=== PATIENT | female | born 1945 | race Caucasian/White ===

== ENCOUNTER 2016-12-23 12:08 | Emergency (ER) | payer MEDICARE, OTHER ==
[2016-12-23 12:11] VITALS: BP 113/66; PULSE 59; TEMP 98.1; O2SAT 100; BMI 22.6
--- NOTE | 2016-12-23 13:28 | ED PDOC ---
Lower Extremity Pain/Injury Time Seen by Provider: 12/23/16 12:26 Chief Complaint (Nursing): Lower Extremity Problem/Injury Chief Complaint (Provider): Bilateral hip pain History Per: Patient History/Exam Limitations: no limitations Onset/Duration Of Symptoms: Persistent (4 months) Current Symptoms Are (Timing): Still Present Additional History Per: Patient Additional Complaint(s): The patient is a 71yo female with past medical history of hypertension and diabetes, presents to the ED for evaluation of bilateral hip pain, present for the past 4 months. Patient states she has visited her PCP 3x times for her pain and has received cortisone injections with mild relief. She reports she is also taking Robaxin and Diclofenac for her symptoms with no relief. She states her pain is worse with movement and she denies any falls or indirect injuries to her hips. Patient offers no additional medical complaints. Past Medical History Reviewed: Historical Data, Nursing Documentation, Vital Signs Vital Signs: Last Vital Signs Temp 98.1 F 12/23/16 12:10 Pulse 59 L 12/23/16 12:10 Resp BP 113/66 12/23/16 12:10 Pulse Ox 100 12/23/16 12:10 - Medical History PMH: Anxiety, Asthma, Diabetes, HTN Denies: Chronic Kidney Disease - Surgical History Surgical History: Cholecystectomy, Tonsillectomy - Family History Family History: States: No Known Family Hx - Living Arrangements Living Arrangements: With Family - Home Medications Home Medications: Ambulatory Orders Medication Instructions Recorded Albuterol Sulfate [Proair Hfa] 0.09 mg IH DAILY PRN 12/18/15 Albuterol/Ipratropium [Duoneb 3 3 ml IH DAILY PRN 12/18/15 MG/3 Ml-0.5 MG/3 Ml 3 Ml] Alprazolam [Xanax] 0.5 mg PO TID PRN 12/18/15 Fluticasone/Salmeterol 500/50 1 puff IH Q12 12/18/15 [Advair Diskus] Losartan/Hydrochlorothiazide 1 tab PO DAILY 12/18/15 [Losartan-Hctz 100-25 mg Tab] Meloxicam [Mobic] 7.5 mg PO DAILY 12/18/15 Memantine HCl [Namenda Xr] 28 mg PO DAILY 12/18/15 Mometasone [Asmanex Twisthaler 110 1 puff PO DAILY 12/18/15 MCG] Montelukast [Singulair] 10 mg PO DAILY 12/18/15 [place]-3 Fatty Acids [[place]-3] 1 cap PO DAILY 12/18/15 Omeprazole [Omeprazole] 20 mg PO DAILY 12/18/15 QUEtiapine [SEROquel XR] 50 mg PO DAILY 12/18/15 Quetiapine Fumarate [Seroquel] 25 mg PO DAILY 12/18/15 Temazepam [Restoril] 30 mg PO HS 12/18/15 - Allergies Allergies/Adverse Reactions: Allergies Allergy/AdvReac Type Severity Reaction Status Date / Time moxifloxacin [From Avelox] Allergy RASH Verified 12/23/16 12:14 Penicillins Allergy RASH Verified 12/23/16 12:14 Review of Systems Musculoskeletal: Positive for: Other (bilateral hip pain) Neurological: Negative for: Weakness, Numbness Physical Exam - Reviewed Nursing Documentation Reviewed: Yes Vital Signs Reviewed: Yes - Physical Exam Appears: Positive for: Non-toxic, No Acute Distress Head Exam: Positive for: ATRAUMATIC, NORMAL INSPECTION, NORMOCEPHALIC Eye Exam: Positive for: Normal appearance Neck: Positive for: Supple Cardiovascular/Chest: Positive for: Regular Rate, Rhythm Respiratory: Negative for: Respiratory Distress Gastrointestinal/Abdominal: Positive for: Normal Exam, Soft. Negative for: Tenderness Extremity: Positive for: Tenderness (tenderness to bilateral hips, right greater than left.). Negative for: Normal ROM (+ decreased ROM bilateral hips due to pain.), Deformity, Swelling Neurologic/Psych: Positive for: Alert, Oriented. Negative for: Motor/Sensory Deficits - ECG O2 Sat by Pulse Oximetry: 100 (RA) Pulse Ox Interpretation: Normal Medical Decision Making Medical Decision Making: Time: 1235 Impression: Bilateral hip pain Plan: -- XR bilateral hip Reassess XRay: at femoral head vague luceny noted. pt strongly advised to have orthopedic f/u and MRI of hip. Given clay artist contact . Scribe Attestation: Documented by Chantel Martines acting as a scribe for STEFANO Suero Provider Attestation: All medical record entries made by the Scribe were at my direction and personally dictated by me. I have reviewed the chart and agree that the record accurately reflects my personal performance of the history, physical exam, medical decision making, and the department course for this patient. I have also personally directed, reviewed, and agree with the discharge instructions and disposition. Disposition - Clinical Impression Clinical Impression: Hip pain - Patient ED Disposition Is Patient to be Admitted: No Counseled Patient/Family Regarding: Studies Performed, Diagnosis, Need For Followup - Disposition Referrals: [facility] [Outside] [facility] [place] [Outside] [facility] [place] [Outside] Disposition: Routine/Home Disposition Time: 13:46 Condition: STABLE Instructions: Arthralgia (ED), Hip Pain (ED) Print Language: CUBAN
--- NOTE | 2016-12-23 16:55 | RAD ---
PROCEDURE: Pelvis bilateral hips HISTORY: Severe pain worsening in the last 3 days COMPARISON: None TECHNIQUE: Standard protocol for this study/examination. FINDINGS: There are no osseous abnormalities to suggest fracture. The pelvic ring is intact. Preserved femoral-acetabular relationship. Negative study for protrusio, subluxation or dislocation. Degenerative changes: None IMPRESSION: No significant or acute findings to account for/ related to the clinical presentation.
== END 2016-12-23 14:15 | disposition home or self-care (01) ==
LOC: H.ER 12:08
DX: M25.559 Pain in unspecified hip (principal); E11.9 Type 2 diabetes mellitus without complications; F41.9 Anxiety disorder, unspecified; I10 Essential (primary) hypertension; J45.909 Unspecified asthma, uncomplicated

== ENCOUNTER 2017-03-04 09:17 | Inpatient (IN) | payer OTHER ==
[2017-03-04] MEDS ORDERED: ceFAZolin IV 1 gm in Dextrose 0 GM/0 ML BAG IVPB ONE (11:32)
[2017-03-04] MEDS ORDERED: Bupivacaine 0.5% Inj(30mL) ONE (11:32)
[2017-03-04] MEDS ORDERED: EPINEPHrine 1 mg/ml (1:1000) Inj ONE (11:32)
--- NOTE | 2017-03-04 12:02 | CARD ---
APPROVED REPORT EKG Measurement Heart [id number] <Conclusion> Normal sinus rhythm Normal ECG
[2017-03-04] MEDS ORDERED: Midazolam 2 MG/2 ML VIAL ONE (12:17)
[2017-03-04] MEDS ORDERED: Lidocaine 4% (Laryng-O-Jet) Kit MM ONE (12:17)
[2017-03-04] MEDS ORDERED: Morphine 1 mg/ml preservative-free Inj(Duramorph) ONE (12:20)
[2017-03-04] MEDS ORDERED: Etomidate 20 mg/10ml Inj IV ONE (12:20)
[2017-03-04] MEDS ORDERED: Rocuronium 10 mg/ml (5 ml) ONE (12:42)
[2017-03-04] MEDS ORDERED: Lactated Ringer's 1,000 ML IV ONE ×3 (12:49→14:30)
[2017-03-04] MEDS ORDERED: Sodium Chloride 0.9% 1,000 ML IV ONE ×3 (12:49→15:37)
[2017-03-04] MEDS ORDERED: ePHEDrine 50 mg/ml Inj ONE (13:41)
[2017-03-04] MEDS ORDERED: Neostigmine Methylsulfate 3mg/3ml Syringe IV ONE (14:57)
[2017-03-04] MEDS ORDERED: Bacitracin Ointment 30 GM TUBE ONE (15:14)
[2017-03-04] MEDS ORDERED: Sodium Chloride 0.9% Inj (10mL) IV ONE (15:25)
[2017-03-04] MEDS ORDERED: HYDROmorphone 0.5 mg/0.5 ml ISec IVP PRN (15:39)
[2017-03-04] MEDS ORDERED: Dexamethasone 4 mg/1 ml IVP PRN (15:39)
[2017-03-04] MEDS ORDERED: Naproxen 500 MG TAB PO PRN (15:49)
[2017-03-04] MEDS ORDERED: Albuterol HFA 90 mcg/actuation (8 g) IH PRN (15:49)
[2017-03-04] MEDS ORDERED: Albuterol-Ipratrop 3 mg / 0.5 (3 ml) UD IH PRN (15:49)
--- NOTE | 2017-03-04 15:49 | PCM.SURG1 ---
Surgeon's Initial Post Op Note - Surgeon's Notes Surgeon: Lata Patten MD Pipe Bowls Paint Trimmer: TOBY Panchal Type of Anesthesia: General Endo, Spinal Pre-Operative Diagnosis: Right hip severe OA Operative Findings: see p report Post-Operative Diagnosis: same as pre-op dx Operation Performed: R THR Specimen/Specimens Removed: right hip femoral head and soft tissue Estimated Blood Loss: EBL {In ML}: 250 Date of Surgery/Procedure: 03/04/17 Time of Surgery/Procedure: 14:00
[2017-03-04 17:20] LABS: HEMATOCRIT 35.6 % (34.0-47.0); MEAN CELL VOLUME 92.2 fl (81.0-99.0); MEAN CORPUSCULAR HGB CONC 32.6 g/dL (33.0-37.0); RED CELL DISTRIBUTION WIDTH 14.1 % (11.5-14.5); WHITE BLOOD COUNT 9.7 K/uL (4.8-10.8)
--- NOTE | 2017-03-04 18:06 | RAD ---
Indication: Status post right THR Comparison: Bilateral hip radiographs performed 12/23/16 Two views, right hip Findings: The patient is status post right hip arthroplasty. Alignment appears satisfactory. Soft tissue swelling, subcutaneous emphysema, and surgical libertad compatible with recent postoperative history Impression: Status post right hip arthroplasty as above.
[2017-03-04] MEDS ORDERED: DiphenhydrAMINE 50 mg/ml Inj IVP STA (19:44)
[2017-03-04] MEDS ORDERED: Clindamycin 600mg/50ml NS 600 MG/50 ML BAG IVPB ONE (20:00)
[2017-03-04] MEDS: oxyCODONE 10 mg ER Tab (oxyCONTIN) PO SCH (21:28)
--- NOTE | 2017-03-04 21:30 | OP ---
PROCEDURE DATE: 03/04/2017 ATTENDING PHYSICIAN: Lata Patten MD. COSTUME SHOP COORDINATOR: IVÁN Panchal. PREOPERATIVE DIAGNOSIS: Right hip arthritis. POSTOPERATIVE DIAGNOSIS: Right hip arthritis. PROCEDURE: Right total hip replacement. IMPLANTS SIZE: [place] 50 mm cup, MDM liner, 38 mm head with MDM liner, size 4 standard offset stem. ANESTHESIA TYPE: Spinal and general. ESTIMATED BLOOD LOSS: 200 mL. COMPLICATIONS: None. HISTORY: Patient with long standing history of right hip pain refractory of conservative management. X-ray had shown significant loss of joint space. After the failure of extensive conservative management, I had offered the patient the treatment option of total hip replacement. I reviewed the risk and benefits of the surgery with the patient in detail. The risks include, but not limited to bleeding, infection, nerve vessel damage, continuous pain, blood loss, instability, dislocation, iatrogenic fracture, blood clots, need for further surgery, and even . The patient fully understood the risks and benefits and opted to proceed. Patient underwent necessary preoperative medical workup and once medically cleared, was scheduled for the procedure. DESCRIPTION OF PROCEDURE: On the day of the surgery, the patient was admitted to preoperative holding area. A laterality sheet was completed, confirming correct operative site. An informed consent was signed from the patient and the correct operative hip was marked. Patient was brought into the operating room table. She underwent spinal and general anesthesia. Afterwards, the patient was placed on the operating room table in lateral decubitus position. All the bony prominences were well padded and an axillary roll was also placed. The hip was draped and prepped in the standard sterile manner. Timeout was completed, confirming correct operative site. We proceeded with Navigation assisted total hip replacement. Two pins were placed in the iliac crest to attach the antenna. Additional checkpoint was placed on the greater trochanter and on top of the acetabular roof. We utilized a standard postero-lateral approach. Using a #10 blade, a skin incision was made. The soft tissue dissection was taken down until the IT band fascia was identified incised along it's fibers. The short external rotators were exposed and excised with the capsule. It was tagged wit heavy sutures preserved for a later repair. Afterwards, the hip was dislocated and proposed neck cut was made. The Acetabulum was exposed using standard retractors. The remnant of torn labrum was excised along with pulvinar. The acetabulum was reamed using motorized reamers to the size that provide adequate depth and coverage. Next, size 50 cup was securely fixed in to the acetabular socket in appropriate version and inclination. A polyethylene liner was secured in to the acetabular cup. The femoral canal was exposed using standard retractors. Using the box chisel, lateral femoral neck was removed. Femoral canal was broached up to size 4 stem, which provide a secure fit and adequate fill of femoral canal. A standard offset trial neck was secured onto the broach. Different trial heads with variable neck lengths were secured onto the trial neck. The hip was reduced and taken through extensive range of motion to test stability, soft tissue tensioning and leg length. It was noted the 38 mm MDM liner with minus neck length provide adequate stability, soft tissue tensioning and length. Next, size 4 stem with standard offset was securely fixed into the femoral canal. Then, a 38 mm MDM head with 0 neck length was secured onto the neck of femoral stem. Hip was reduced and taken through final range of motion to assess for stability, soft tissue tensioning and leg length which was found to be satisfactory. Finally, the wound was copiously irrigated using pulse lavage solution. All loose bodies were removed. The short external rotators were repaired to greater trochanter using drill holes and heavy sutures. IT band fascia was tightly closed using heavy sutures and rest the wound was closed standard manner. Sterile dressing was applied. Patient was transferred to stretcher. Post-op instructions included posterior hip precautions. During this procedure, I was assisted by Courtney Quiles, who assisted in positioning the patient on the operating room table as well as transferring the patient from the operating room table to the recovery room stretcher. In addition, Courtney Quiles assisted me during the actual operative procedure by positioning, protecting critical neurovascular structures, exposure of the joint, and proper positioning of the implants. The presence of Courtney Quiles as my operative printer assistant was medically necessary to ensure the utmost safety of the patient in the pre, intra-, and post-operative periods. Lata Patten MD
[2017-03-05] MEDS ORDERED: Clindamycin 600mg/50ml NS 600 MG/50 ML BAG IVPB ONE (02:00)
[2017-03-05] MEDS: Oxycodone/Acetaminophen 5/325 mg Tab PO PRN ×2 (06:27→22:12)
[2017-03-05 06:50] LABS: HEMATOCRIT 31.7 % (34.0-47.0); MEAN CELL VOLUME 90.8 fl (81.0-99.0); MEAN CORPUSCULAR HEMOGLOBIN 30.9 pg (27.0-31.0); RED CELL DISTRIBUTION WIDTH 14.2 % (11.5-14.5); WHITE BLOOD COUNT 13.5 K/uL (4.8-10.8)
[2017-03-05 07:22] LABS: CALCIUM 7.8 mg/dL (8.4-10.2); POTASSIUM 4.5 MMOL/L (3.6-5.0)
[2017-03-05] MEDS ORDERED: HYDROCHLOROTHIAZIDE PO SCH (09:00)
[2017-03-05] MEDS ORDERED: LOSARTAN PO SCH (09:00)
--- NOTE | 2017-03-05 09:54 | CP.PCM.PN ---
Subjective - Date & Time of Evaluation Date of Evaluation: 03/05/17 Time of Evaluation: 08:30 - Subjective Subjective: S/P RTHR POD#1 Pt seen and examined at bedside, comfortbale in bed Pt c/o mild right hip pain Pt denies SOB, chest pain, N/V/D, numbness/tingling RLE Objective - Vital Signs/Intake and Output Vital Signs (last 24 hours): Temp Pulse Resp BP Pulse Ox 97.3 F L 75 20 118/72 98 03/05/17 09:01 03/05/17 09:01 03/05/17 09:01 03/05/17 09:01 03/05/17 09:01 - Medications Medications: Current Medications Acetaminophen (Tylenol 325mg Tab) 325 mg PO Q4 PRN PRN Reason: pain1-3 Albuterol (Ventolin Hfa 90 Mcg/Actuation (8 G)) 2 puff IH PRN PRN PRN Reason: Shortness of Breath Albuterol/Ipratropium (Duoneb 3 Mg/0.5 Mg (3 Ml) Ud) 3 ml IH ONCE PRN PRN Reason: Shortness of Breath Alprazolam (Xanax) 0.5 mg PO QID PRN PRN Reason: Anxiety Last Admin: 03/05/17 01:59 Dose: 0.5 mg Aspirin (Ecotrin) 81 mg PO DAILY [facility] Atenolol (Tenormin) 50 mg PO DAILY [facility] Atorvastatin Calcium (Lipitor) 40 mg PO DAILY [facility] Celecoxib (Celebrex) 100 mg PO Q12 [facility] Stop: 03/18/17 23:59 Last Admin: 03/04/17 21:29 Dose: 100 mg Enoxaparin Sodium (Lovenox) 40 mg SC DAILY [facility] PRN Reason: Protocol Hydrochlorothiazide (Microzide) 12.5 mg PO DAILY [facility] Hydromorphone HCl (Dilaudid) 2 mg IVP Q4 PRN PRN Reason: Pain, severe (8-10) Hydroxyzine HCl (Atarax) 25 mg PO DAILY [facility] Ketorolac Tromethamine (Toradol) 15 mg IM Q8 [facility] Stop: 03/06/17 20:00 Last Admin: 03/05/17 00:35 Dose: 15 mg Losartan Potassium (Cozaar) 100 mg PO DAILY [facility] Oxycodone HCl (Oxycontin Extended Release Tab) 10 mg PO Q12 [facility] Stop: 03/18/17 21:01 Last Admin: 03/04/17 21:28 Dose: 10 mg Oxycodone/Acetaminophen (Percocet 5/325 Mg Tab) 1 tab PO Q4 PRN PRN Reason: pain4-6 Stop: 03/07/17 16:02 Last Admin: 03/05/17 06:27 Dose: 1 tab - Labs Labs: 03/05/17 05:15 03/05/17 05:15 - Constitutional Appears: Well, No Acute Distress - Respiratory Exam Respiratory Exam: Clear to Ausculation Bilateral, NORMAL BREATHING PATTERN - Cardiovascular Exam Cardiovascular Exam: REGULAR RHYTHM, RRR - Extremities Exam Additional comments: RLE: hip dressing C/D/I Calves soft and nontender b/l N/V intact distally No foot drop Distal pulses wnl Assessment and Plan - Assessment and Plan (Free Text) Assessment: 71 yo F s/p RTHR POD#1 Plan: Pain Control DVT ppx Incentive Spirometer PT/OT F/U labs Continue current management
[2017-03-05] MEDS: Enoxaparin 40 mg Syringe SC SCH (10:23)
[2017-03-05] MEDS: oxyCODONE 10 mg ER Tab (oxyCONTIN) PO SCH ×2 (10:28→21:07)
--- NOTE | 2017-03-05 11:48 | CP.PCM.HP ---
History of Present Illness - History of Present Illness History of Present Illness: Patient seen and examined with Dr. Nam 71 year old female admitted s/p right hip replacement. She reports hx of ' memory issues', HTN, HLD, insomnia. This morning patient is well appearing, sitting upright in chair. She was seen in therapy with PT/OT and did well. She has some post operative pain but it is tolerable. She is tolerating her diet. Requesting her sleep medications. PMH: HTN, HLD, INsomina, ?dementia, as per chart: Asthma Medications: reviewed AllergieS: moxifloxacin, penicillins Present on Admission - Present on Admission Any Indicators Present on Admission: No Past Patient History - Past Medical History & Family History Past Medical History?: Yes - Past Social History Smoking Status: Former Smoker - CARDIAC Hx Hypercholesterolemia: Yes Hx Hypertension: Yes - PULMONARY Hx Respiratory Disorders: Yes Hx Asthma: Yes - NEUROLOGICAL Hx Neurological Disorder: No - HEENT Hx HEENT Problems: Yes Hx Cataracts: Yes (no surgery yet) - RENAL Hx Chronic Kidney Disease: No - ENDOCRINE/METABOLIC Hx Diabetes Mellitus Type 2: Yes (pre-diabetic) - HEMATOLOGICAL/ONCOLOGICAL Hx Blood Disorders: No Hx Blood Transfusions: No - INTEGUMENTARY Hx Dermatological Problems: No - MUSCULOSKELETAL/RHEUMATOLOGICAL Hx Arthritis: Yes - GASTROINTESTINAL Hx Gastrointestinal Disorders: No - GENITOURINARY/GYNECOLOGICAL Hx Genitourinary Disorders: No - PSYCHIATRIC Hx Emotional Abuse: No Hx Physical Abuse: No - SURGICAL HISTORY Hx Surgeries: Yes Hx Cholecystectomy: Yes Hx Hysterectomy: Yes Hx Tonsillectomy: Yes Other/Comment: BUNIONECTOMY BILATERAL - ANESTHESIA Hx Anesthesia: Yes Hx Anesthesia Reactions: No Hx Malignant Hyperthermia: No Has any member of the family had a problem w/ anesthesia?: No Meds Allergies/Adverse Reactions: Allergies Allergy/AdvReac Type Severity Reaction Status Date / Time moxifloxacin [From Avelox] Allergy RASH Verified 03/04/17 11:18 Penicillins Allergy RASH Verified 03/04/17 11:18 Physical Exam - Constitutional Appears: Non-toxic, No Acute Distress - Head Exam Head Exam: ATRAUMATIC, NORMAL INSPECTION, NORMOCEPHALIC - Eye Exam Eye Exam: EOMI, Normal appearance, PERRL - ENT Exam ENT Exam: Mucous Membranes Moist - Respiratory Exam Respiratory Exam: NORMAL BREATHING PATTERN. absent: Accessory Muscle Use, Decreased Breath Sounds, Prolonged Expiratory Phase, Wheezes, Respiratory Distress - Cardiovascular Exam Cardiovascular Exam: REGULAR RHYTHM, +S1, +S2 - Extremities Exam Additional comments: right lower extremity wrapped in GAUTAM. pain surrounding surgical site - Neurological Exam Neurological exam: Alert, CN II-XII Intact, Oriented x3 - Psychiatric Exam Psychiatric exam: Normal Affect, Normal Mood - Skin Skin Exam: Dry, Intact, Normal Color, Warm Results - Vital Signs Recent Vital Signs: Last Vital Signs Temp 97.3 F L 03/05/17 09:01 Pulse 75 03/05/17 10:23 Resp 20 03/05/17 09:01 BP 113/65 03/05/17 10:23 Pulse Ox 98 03/05/17 10:07 - Labs Result Diagrams: 03/05/17 05:15 03/05/17 05:15 Labs: Laboratory Results - last 24 hr 03/04/17 03/04/17 03/04/17 10:00 10:45 16:18 WBC RBC Hgb Hct MCV MCH MCHC RDW Plt Count Sodium Potassium Chloride Carbon Dioxide Anion Gap BUN Creatinine Est GFR ( Amer) Est GFR (Non-Af Amer) POC Glucose (mg/dL) 109 Random Glucose Calcium Blood Type O POSITIVE Blood Type Confirm O POSITIVE Antibody Screen Negative Crossmatch See Detail BBK History Checked No verified bt 03/04/17 03/04/17 03/05/17 17:09 21:35 05:15 WBC 9.7 13.5 H RBC 3.86 3.50 L Hgb 11.6 L 10.8 L Hct 35.6 31.7 L MCV 92.2 D 90.8 MCH 30.0 30.9 MCHC 32.6 L 34.0 RDW 14.1 14.2 Plt Count 159 167 Sodium Potassium Chloride Carbon Dioxide Anion Gap BUN Creatinine Est GFR ( Amer) Est GFR (Non-Af Amer) POC Glucose (mg/dL) 118 H Random Glucose Calcium Blood Type Blood Type Confirm Antibody Screen Crossmatch BBK History Checked 03/05/17 03/05/17 03/05/17 05:15 06:23 11:20 WBC RBC Hgb Hct MCV MCH MCHC RDW Plt Count Sodium 136 Potassium 4.5 Chloride 104 Carbon Dioxide 26 Anion Gap 11 BUN 22 H Creatinine 1.1 Est GFR ( Amer) 60 Est GFR (Non-Af Amer) 49 POC Glucose (mg/dL) 181 H 182 H Random Glucose 152 H Calcium 7.8 L Blood Type Blood Type Confirm Antibody Screen Crossmatch BBK History Checked Assessment & Plan (1) S/P hip replacement Assessment and Plan: POD#1 71 year old female s/p R hip replacement. Pain is controlled. Patient had 1 unit PRBCs after procedure, HG >10. PT/OT have seen and evaluated the patient. She is doing well postoperatively. Status: Acute (2) HLD (hyperlipidemia) Assessment and Plan: resume home medications Status: Chronic (3) Memory deficit Status: Chronic Comment: unclear severity. no obvious memory deficits. resume home medications (4) Hypertension Assessment and Plan: controlled with home medications Status: Chronic (5) DVT prophylaxis Assessment and Plan: lovenox case d/w Dr. Nam Status: Acute
[2017-03-05] MEDS: Pantoprazole 20 mg EC Tab PO SCH (12:49)
[2017-03-05] MEDS ORDERED: TRIAZOLAM 0.25 MG PO SCH (22:00)
[2017-03-06 06:30] LABS: HEMATOCRIT 28.2 % (34.0-47.0); MEAN CELL VOLUME 91.8 fl (81.0-99.0); MEAN CORPUSCULAR HEMOGLOBIN 30.9 pg (27.0-31.0); MEAN CORPUSCULAR HGB CONC 33.6 g/dL (33.0-37.0); RED CELL DISTRIBUTION WIDTH 14.1 % (11.5-14.5); WHITE BLOOD COUNT 9.6 K/uL (4.8-10.8)
[2017-03-06 07:15] LABS: CALCIUM 7.5 mg/dL (8.4-10.2); POTASSIUM 3.9 MMOL/L (3.6-5.0)
[2017-03-06 07:51] VITALS: RESP 20
[2017-03-06] MEDS ORDERED: QUETIAPINE 150 MG PO SCH (09:00)
[2017-03-06] MEDS: oxyCODONE 10 mg ER Tab (oxyCONTIN) PO SCH (09:44)
[2017-03-06] MEDS: Pantoprazole 20 mg EC Tab PO SCH (09:46)
[2017-03-06] MEDS: Enoxaparin 40 mg Syringe SC SCH (09:49)
--- NOTE | 2017-03-06 10:22 | CP.PCM.DIS ---
Provider - Provider Date of Admission: 03/04/17 16:09 Attending physician: Dillon Nam MD Time Spent in preparation of Discharge (in minutes): 30 Hospital Course - Lab Results Lab Results: Most Recent Lab Values WBC 9.6 K/uL (4.8-10.8) 03/06/17 05:35 RBC 3.07 Mil/uL (3.80-5.20) L 03/06/17 05:35 Hgb 9.5 g/dL (12.0-16.0) L 03/06/17 05:35 Hct 28.2 % (34.0-47.0) L 03/06/17 05:35 MCV 91.8 fl (81.0-99.0) 03/06/17 05:35 MCH 30.9 pg (27.0-31.0) 03/06/17 05:35 MCHC 33.6 g/dL (33.0-37.0) 03/06/17 05:35 RDW 14.1 % (11.5-14.5) 03/06/17 05:35 Plt Count 150 K/uL (130-400) 03/06/17 05:35 Sodium 133 mmol/l (132-148) 03/06/17 05:35 Potassium 3.9 MMOL/L (3.6-5.0) 03/06/17 05:35 Chloride 101 mmol/L (98-107) 03/06/17 05:35 Carbon Dioxide 28 mmol/L (22-30) 03/06/17 05:35 Anion Gap 8 (10-20) L 03/06/17 05:35 BUN 27 mg/dl (7-17) H 03/06/17 05:35 Creatinine 1.1 mg/dl (0.7-1.2) 03/06/17 05:35 Est GFR ( Amer) 60 03/06/17 05:35 Est GFR (Non-Af Amer) 49 03/06/17 05:35 POC Glucose (mg/dL) 108 mg/dL (65-110) 03/06/17 05:08 Random Glucose 121 mg/dL (65-105) H 03/06/17 05:35 Calcium 7.5 mg/dL (8.4-10.2) L 03/06/17 05:35 Blood Type O POSITIVE 03/04/17 10:00 Blood Type Confirm O POSITIVE 03/04/17 10:45 Antibody Screen Negative 03/04/17 10:00 Crossmatch See Detail 03/04/17 10:00 BBK History Checked No verified bt 03/04/17 10:00 - Hospital Course Hospital Course: This is a 71 y/0 female admitted for right THR for severe OA. Has a hx of HTN OA dementia hyperlipidemia Post op period was unremarkable She was able too ambulate with a walker Phys therapy was started She was discharged to [facility] for further PT. Discharge Exam - Head Exam Head Exam: ATRAUMATIC, NORMAL INSPECTION, NORMOCEPHALIC - Eye Exam Eye Exam: Normal appearance - Respiratory Exam Respiratory Exam: NORMAL BREATHING PATTERN - Cardiovascular Exam Cardiovascular Exam: REGULAR RHYTHM - GI/Abdominal Exam GI & Abdominal Exam: Normal Bowel Sounds - Neurological Exam Neurological exam: CN II-XII Intact, Oriented x3 - Psychiatric Exam Psychiatric exam: Normal Mood Discharge Plan - Follow Up Plan Condition: GOOD Disposition: HOME/ ROUTINE Additional Instructions: all meds were reconciled will contiue all meds from home medically stable for discharge, will ask Dr Polanco to see patient in [facility].
[2017-03-06] MEDS: MEMANTINE HCL PO SCH ×2 (12:45→12:46)
[2017-03-06] MEDS: DONEPEZIL HCL PO SCH ×2 (12:45→12:46)
[2017-03-06 16:16] VITALS: BP 100/53; PULSE 72; TEMP 98.5; O2SAT 99
== END 2017-03-06 16:21 | DRG 470 ==
LOC: H.OPSURG 09:17 → H.MEDSURG1 16:09
PROVIDERS: ADMIT Family Medicine; ATTEND Family Medicine
PROC: 0SR90JZ Replacement of Right Hip Joint with Synthetic Substitute, Open Approach (ICD-10-PCS; principal; 2017-03-04 15:30)
DX: M16.11 Unilateral primary osteoarthritis, right hip (principal); F03.90 Unspecified dementia, unspecified severity, without behavioral disturbance, psychotic disturbance, mood disturbance, and anxiety; E78.5 Hyperlipidemia, unspecified; I10 Essential (primary) hypertension; J45.909 Unspecified asthma, uncomplicated; G47.00 Insomnia, unspecified; Z88.3 Allergy status to other anti-infective agents; Z88.0 Allergy status to penicillin; Z87.891 Personal history of nicotine dependence

== ENCOUNTER 2017-03-21 18:16 | Emergency (ER) | payer OTHER ==
[2017-03-21 18:16] VITALS: BMI 22.6
[2017-03-21 18:22] VITALS: TEMP 98.3
--- NOTE | 2017-03-21 18:54 | ED PDOC ---
Lower Extremity Pain/Injury Time Seen by Provider: 03/21/17 18:43 Chief Complaint (Nursing): Lower Extremity Problem/Injury History Per: Patient Onset/Duration Of Symptoms: Days (2) Current Symptoms Are (Timing): Still Present Severity: Moderate Pain Scale Rating Of: 2 Additional Complaint(s): Right leg pain and swelling x 2 days. S/p right hip arthroplasty Mar 04. Denies chest pain or SOB. Past Medical History Vital Signs: Last Vital Signs Temp 98.3 F 03/21/17 18:21 Pulse 68 03/21/17 18:21 Resp 16 03/21/17 18:21 BP 114/78 03/21/17 18:21 Pulse Ox 98 03/21/17 18:21 - Medical History PMH: Anxiety, Arthritis, Asthma, Depression, Diabetes, HTN, Hypercholesterolemia Denies: Chronic Kidney Disease - Surgical History Surgical History: Cholecystectomy, Tonsillectomy - Family History Family History: States: Unknown Family Hx - Home Medications Home Medications: Ambulatory Orders Medication Instructions Recorded Albuterol Sulfate [Proair Hfa] 200 puff IH PRN PRN 03/04/17 Albuterol/Ipratropium [Duoneb 3 3 ml IH PRN PRN 03/04/17 mg/0.5 mg (3 ml) UD] Alprazolam [Xanax] 0.5 mg PO QID PRN 03/04/17 Ascorbic Acid [Vitamin C] 1,000 mg PO DAILY 03/04/17 Aspirin [Ecotrin] 81 mg PO DAILY 03/04/17 Atenolol [Tenormin] 50 mg PO DAILY 03/04/17 Atorvastatin [Lipitor] 40 mg PO DAILY 03/04/17 Folic Acid 1 mg PO DAILY 03/04/17 Glucosamine HCl 1,500 mg PO DAILY 03/04/17 Hydroxyzine HCl 25 mg PO DAILY 03/04/17 Memantine HCl/Donepezil HCl 1 each PO DAILY 03/04/17 [Namzaric 14 mg-10 mg Capsule] Multivitamin/Iron/Folic Acid 1 each PO DAILY 03/04/17 [Centrum Adults Tablet] Omeprazole 20 mg PO DAILY 03/04/17 QUEtiapine [Seroquel XR] 150 mg PO DAILY 03/04/17 Triazolam [Halcion] 0.25 mg PO HS 03/04/17 Celecoxib [celeBREX] 100 mg PO Q12 cap 03/06/17 Enoxaparin [Lovenox] 40 mg SC DAILY syr 03/06/17 hydroCHLOROthiazide [Microzide] 12.5 mg PO DAILY cap 03/06/17 metFORMIN [glucOPHAGE] 500 mg PO DAILY tab 03/06/17 oxyCODONE [oxyCONTIN Extended 10 mg PO Q12 #14 tab 03/06/17 Release Tab] oxyCODONE/Acetaminophen [Percocet 1 tab PO Q4 PRN #14 tab 03/06/17 5/325 mg Tab] - Allergies Allergies/Adverse Reactions: Allergies Allergy/AdvReac Type Severity Reaction Status Date / Time moxifloxacin [From Avelox] Allergy RASH Verified 03/04/17 11:18 Penicillins Allergy RASH Verified 03/04/17 11:18 Review of Systems ROS Statement: Except As Marked, All Systems Reviewed And Found Negative Cardiovascular: Negative for: Chest Pain Respiratory: Negative for: Shortness of Breath Musculoskeletal: Positive for: Leg Pain Physical Exam - Reviewed Nursing Documentation Reviewed: Yes Vital Signs Reviewed: Yes - Physical Exam Appears: Positive for: Non-toxic, No Acute Distress Head Exam: Positive for: ATRAUMATIC, NORMAL INSPECTION, NORMOCEPHALIC Skin: Positive for: Normal Color, Warm, DRY Eye Exam: Positive for: EOMI, Normal appearance, PERRL ENT: Positive for: Normal ENT Inspection Neck: Positive for: Normal, Painless ROM Cardiovascular/Chest: Positive for: Regular Rate, Rhythm Respiratory: Positive for: CNT, Normal Breath Sounds Gastrointestinal/Abdominal: Positive for: Normal Exam, Bowel Sounds, Soft Back: Positive for: Normal Inspection Extremity: Positive for: Normal ROM, Swelling, Other (Tenderness right popliteal fossa) Neurologic/Psych: Positive for: Alert, Oriented - ECG O2 Sat by Pulse Oximetry: 98 Disposition - Clinical Impression Clinical Impression: S/P hip replacement - Patient ED Disposition Is Patient to be Admitted: Transfer of Care - Disposition Disposition Time: 19:00 Condition: FAIR Patient Signed Over To: Viktor Sinclair
--- NOTE | 2017-03-21 19:25 | ED PDOC ---
- Laboratory Results Result Diagrams: 03/21/17 19:30 03/21/17 19:30 - ECG O2 Sat by Pulse Oximetry: 98 (RA) Pulse Ox Interpretation: Normal Medical Decision Making Medical Decision Making: Time: 1899 --Patient was transferred from Dr. Mcgee to ar. --Patient pending ultrasound and labs. Time: 1925 --US Duplex Right Lower Extremity FINDINGS: Deep veins: Unremarkable. No DVT in the visualized common femoral, femoral, proximal deep femoral or popliteal veins. The veins demonstrate normal color flow, are normally compressible, with normal phasic flow and/or augmentation response. Superficial veins: Unremarkable. No thrombus in the visualized great saphenous vein. IMPRESSION: Normal right lower extremity duplex venous ultrasound. Time: 2209 --Labs were normal and showed no significant abnormalities. --Case was discussed with Dr. Polanco who asked if MRI was completed within this facility and was told that MRI was unavailable at this hour. He stated that patient can return to Rehab Facility and he will arrange an outpatient MRI for her. --Patient is feeling better, is medically stable, and requires no further treatment in the ED at this time. Patient will be discharged home. Counseling was provided and all questions were answered regarding diagnosis and need for follow up with Dr. Sherri BENTLEY. There is agreement to discharge plan. Return if symptoms persist or worsen. Clinical Impression: Post-Operative Leg Swelling Scribe~Attestation: Documented by Elise ePna, acting as a scribe for Viktor Sinclair MD. Provider Scribe~Attestation: All medical record entries made by the Scribe were at my direction and personally dictated by me. I have reviewed the chart and agree that the record accurately reflects my personal performance of the history, physical exam, medical decision making, and the department course for this patient. I have also personally directed, reviewed, and agree with the discharge instructions and disposition. Disposition Discussed With : Mumtaz Polanco Counseled Patient/Family Regarding: Studies Performed, Diagnosis, Need For Followup - Clinical Impression Clinical Impression: S/P hip replacement, Leg swelling - POA Present On Arrival: None - Disposition Disposition: Routine/Home Disposition Time: 22:10 Condition: STABLE Instructions: Leg Edema (ED) Forms: [email or web address] (Indonesian)
[2017-03-21 19:44] LABS: BASO # 0.1 K/uL (0.0-0.2); BASO % 0.8 % (0.0-2.0); EOS # 0.3 K/uL (0.0-0.7); EOS % 5.1 % (0.0-4.0); HEMATOCRIT 28.8 % (34.0-47.0); LYMPH # 1.4 K/uL (1.0-4.3); LYMPH % 21.7 % (20.0-40.0); MEAN CELL VOLUME 92.8 fl (81.0-99.0); MEAN CORPUSCULAR HEMOGLOBIN 30.2 pg (27.0-31.0); MEAN CORPUSCULAR HGB CONC 32.6 g/dL (33.0-37.0); MEAN PLATELET VOLUME 7.4 fl (7.2-11.7); MONO # 0.6 K/uL (0.0-0.8); NEUT # 4.1 K/uL (1.8-7.0); NEUT % 63.4 % (50.0-75.0); RED CELL DISTRIBUTION WIDTH 14.4 % (11.5-14.5); WHITE BLOOD COUNT 6.5 K/uL (4.8-10.8)
[2017-03-21 19:56] LABS: ALB/GLOB RATIO 1.2 (1.0-2.1); ALKALINE PHOSPHATASE 80 U/L (38-126); ALT/SGPT 72 U/L (9-52); AST/SGOT 47 U/L (14-36); BILIRUBIN,TOTAL 0.5 mg/dl (0.2-1.3); BLOOD UREA NITROGEN 19 mg/dl (7-17); CALCIUM 8.5 mg/dL (8.4-10.2); CARBON DIOXIDE 28 mmol/L (22-30); CHLORIDE 99 mmol/L (98-107); GFR AFRICAN-AMERICAN > 60; GLUCOSE,RANDOM 115 mg/dL (65-105); POTASSIUM 3.8 MMOL/L (3.6-5.0); SODIUM 134 mmol/l (132-148); TOTAL PROTEIN 5.9 G/DL (6.3-8.2)
[2017-03-21 20:49] VITALS: RESP 18
[2017-03-22 02:50] VITALS: BP 126/70; PULSE 64; O2SAT 100
--- NOTE | 2017-03-22 15:15 | CARD ---
APPROVED REPORT EKG Measurement Heart [id number] <Conclusion> Normal sinus rhythm Nonspecific T wave abnormality Abnormal ECG
--- NOTE | 2017-03-22 15:43 | US ---
PROCEDURE: Right lower extremity venous duplex Doppler. HISTORY: right calf pain COMPARISON: None available. TECHNIQUE: Common femoral, superficial femoral, popliteal and posterior tibial veins were evaluated. Flow was assessed with color Doppler, compressibility, assessment of phasic flow and augmentation response. FINDINGS: COMMON FEMORAL VEIN: Unremarkable. SUPERFICIAL FEMORAL VEIN: Unremarkable. POPLITEAL VEIN: Unremarkable. POSTERIOR TIBIAL VEIN: Unremarkable. OTHER FINDINGS: None. IMPRESSION: No evidence of deep venous thrombosis in the right lower extremity.
== END 2017-03-22 02:57 ==
LOC: H.ER 18:16
DX: Z98.890 Other specified postprocedural states (principal); G89.18 Other acute postprocedural pain

== ENCOUNTER 2017-11-17 10:52 | Emergency (ER) | payer OTHER ==
[2017-11-17 10:56] VITALS: BMI 26.6
[2017-11-17 12:38] LABS: BASO % 0.8 % (0.0-2.0); EOS # 0.3 K/uL (0.0-0.7); EOS % 5.2 % (0.0-4.0); HEMOGLOBIN 11.6 g/dL (12.0-16.0); LYMPH # 1.9 K/uL (1.0-4.3); LYMPH % 34.3 % (20.0-40.0); MEAN CELL VOLUME 94.7 fl (81.0-99.0); MEAN CORPUSCULAR HEMOGLOBIN 31.3 pg (27.0-31.0); MEAN PLATELET VOLUME 7.8 fl (7.2-11.7); MONO # 0.5 K/uL (0.0-0.8); MONO % 9.5 % (0.0-10.0); NEUT # 2.8 K/uL (1.8-7.0); NEUT % 50.2 % (50.0-75.0); NRBC % 0.1 % (0.0-0.0); RBC 3.72 Mil/uL (3.80-5.20); RED CELL DISTRIBUTION WIDTH 13.4 % (11.5-14.5); WHITE BLOOD COUNT 5.7 K/uL (4.8-10.8)
[2017-11-17 12:53] LABS: CALCIUM 8.9 mg/dL (8.4-10.2)
--- NOTE | 2017-11-17 14:43 | ED PDOC ---
HPI: General Adult Time Seen by Provider: 11/17/17 11:10 Chief Complaint (Nursing): Hip Pain Chief Complaint (Provider): Abdominal Pain History Per: Patient History/Exam Limitations: no limitations Onset/Duration Of Symptoms: Other (x3 weeks) Current Symptoms Are (Timing): Still Present Additional Complaint(s): 72-year-old female with a past medical history of COPD presenting for evaluation of abdominal pain x3 weeks. Patient reports she is currently taking pain medications, such as opiods. Patient is unclear of regarding source of medications. She states she takes the medication daily, as well as sleeping pills, with relief of her pain. She says she called EMS because she wanted her pain to be evaluated. Patient denies any nausea, vomiting, diarrhea, chest pain , recent falls, or head injury. She reports she ambulates with the assistance of a walker. PMD: Dr. Polanco Past Medical History Reviewed: Historical Data, Nursing Documentation, Vital Signs Vital Signs: Last Vital Signs Temp 97.8 F 11/17/17 19:45 Pulse 81 11/17/17 19:45 Resp 18 11/17/17 19:45 BP 152/102 H 11/17/17 19:45 Pulse Ox 98 11/17/17 19:45 - Medical History PMH: Anxiety, Arthritis, Asthma, Depression, Diabetes, HTN, Hypercholesterolemia Denies: Chronic Kidney Disease - Surgical History Surgical History: Cholecystectomy, Tonsillectomy Other surgeries: Right hip replacement - Family History Family History: States: Unknown Family Hx - Home Medications Home Medications: Ambulatory Orders Medication Instructions Recorded Albuterol Sulfate [Proair Hfa] 200 puff IH PRN PRN 03/04/17 Albuterol/Ipratropium [Duoneb 3 3 ml IH PRN PRN 03/04/17 mg/0.5 mg (3 ml) UD] Alprazolam [Xanax] 0.5 mg PO QID PRN 03/04/17 Ascorbic Acid [Vitamin C] 1,000 mg PO DAILY 03/04/17 Aspirin [Ecotrin] 81 mg PO DAILY 03/04/17 Atenolol [Tenormin] 50 mg PO DAILY 03/04/17 Atorvastatin [Lipitor] 40 mg PO DAILY 03/04/17 Folic Acid 1 mg PO DAILY 03/04/17 Glucosamine HCl 1,500 mg PO DAILY 03/04/17 Hydroxyzine HCl 25 mg PO DAILY 03/04/17 Memantine HCl/Donepezil HCl 1 each PO DAILY 03/04/17 [Namzaric 14 mg-10 mg Capsule] Multivitamin/Iron/Folic Acid 1 each PO DAILY 03/04/17 [Centrum Adults Tablet] Omeprazole 20 mg PO DAILY 03/04/17 QUEtiapine [Seroquel XR] 150 mg PO DAILY 03/04/17 Triazolam [Halcion] 0.25 mg PO HS 03/04/17 Celecoxib [celeBREX] 100 mg PO Q12 cap 03/06/17 Enoxaparin [Lovenox] 40 mg SC DAILY syr 03/06/17 hydroCHLOROthiazide [Microzide] 12.5 mg PO DAILY cap 03/06/17 metFORMIN [glucOPHAGE] 500 mg PO DAILY tab 03/06/17 oxyCODONE [oxyCONTIN Extended 10 mg PO Q12 #14 tab 03/06/17 Release Tab] oxyCODONE/Acetaminophen [Percocet 1 tab PO Q4 PRN #14 tab 03/06/17 5/325 mg Tab] - Allergies Allergies/Adverse Reactions: Allergies Allergy/AdvReac Type Severity Reaction Status Date / Time moxifloxacin [From Avelox] Allergy RASH Verified 03/04/17 11:18 Penicillins Allergy RASH Verified 03/04/17 11:18 Review of Systems ROS Statement: Except As Marked, All Systems Reviewed And Found Negative Cardiovascular: Negative for: Chest Pain Gastrointestinal: Positive for: Abdominal Pain. Negative for: Nausea, Vomiting , Diarrhea Physical Exam - Reviewed Nursing Documentation Reviewed: Yes Vital Signs Reviewed: Yes - Physical Exam Appears: Positive for: Non-toxic, No Acute Distress Head Exam: Positive for: ATRAUMATIC, NORMAL INSPECTION, NORMOCEPHALIC Skin: Positive for: Normal Color, Warm, Dry. Negative for: Rash Eye Exam: Positive for: EOMI, Normal appearance, PERRL Neck: Positive for: Normal, Painless ROM, Supple Cardiovascular/Chest: Positive for: Regular Rate, Rhythm. Negative for: Murmur Respiratory: Positive for: Normal Breath Sounds. Negative for: Respiratory Distress Gastrointestinal/Abdominal: Positive for: Soft, Tenderness (RLQ) Back: Positive for: Normal Inspection. Negative for: L CVA Tenderness, R CVA Tenderness, Vertebral Tenderness Extremity: Positive for: Normal ROM. Negative for: Deformity, Swelling Neurologic/Psych: Positive for: Alert, Oriented (x3). Negative for: Motor/ Sensory Deficits - Laboratory Results Result Diagrams: 11/17/17 12:30 11/17/17 12:30 - ECG O2 Sat by Pulse Oximetry: 97 (RA) Pulse Ox Interpretation: Normal Medical Decision Making Medical Decision Makin:19 Impression: Abdominal pain Plan: -CT Abdomen and Pelvis -BMP -Urine dipstick -CBC -Glucose, POC -Urinalysis -Reevaluation 17:[address] Crocker pending CT. Scribe Attestation: Documented by Todd Griffin, acting as a scribe for Russ Gil MD. Provider Scribe Attestation: All medical record entries made by the Scribe were at my direction and personally dictated by me. I have reviewed the chart and agree that the record accurately reflects my personal performance of the history, physical exam, medical decision making, and the department course for this patient. I have also personally directed, reviewed, and agree with the discharge instructions and disposition. Disposition - Clinical Impression Clinical Impression: Hip pain, Abdominal pain - Patient ED Disposition Is Patient to be Admitted: Transfer of Care Counseled Patient/Family Regarding: Studies Performed, Diagnosis - Disposition Referrals: Mumtaz Polanco MD [Primary Care Provider] - Disposition: Transfer of Care Disposition Time: 17:00 Condition: STABLE Additional Instructions: Return to ER for any new or worsening symptoms. Followup with orthopedics and Dr Polanco for further testing. Instructions: Acute Abdomen (Belly Pain), Adult (DC), Hip Pain Print Language: KOREAN Patient Signed Over To: Donavan Crocker III Handoff Comments: pending CT
[2017-11-17 15:04] LABS: SQUAMOUS EPITHIAL 3 /hpf (0-5); URINE BILIRUBIN NEGATIVE (NEGATIVE); URINE BLOOD NEGATIVE (NEGATIVE); URINE CLARITY CLEAR (Clear); URINE COLOR STRAW (YELLOW); URINE GLUCOSE (UA) NEG (Normal); URINE HYALINE CAST 0-2 /hpf (0-2); URINE LEUKOCYTE ESTERASE NEG Leu/uL (Negative); URINE PROTEIN NEGATIVE (NEGATIVE); URINE UROBILINOGEN 0.2-1.0 mg/dL (0.2-1.0)
[2017-11-17] MEDS ORDERED: Iohexol 300 100 ML IJ ONE (15:59)
[2017-11-17] MEDS ORDERED: Sodium Chloride 0.9% 0 ML IV ONE (15:59)
[2017-11-17] MEDS ORDERED: Iodixanol 320 MG/ML 100 ML BOTTLE IV ONE (16:09)
--- NOTE | 2017-11-17 17:13 | ED PDOC ---
- Laboratory Results Result Diagrams: 11/17/17 12:30 11/17/17 12:30 - ECG O2 Sat by Pulse Oximetry: 97 Medical Decision Making Medical Decision Making: PMD Sherri received 5pm pending CT abd and R hip CT Ambulatory w walker CT reports reviewed Dr Polanco saw patient in ED DC to followup w PMD Results explained via tele marketing executive Waldemar of [employer] and family speaks turkmen/ Disposition - Disposition Referrals: Mumtaz Polanco MD [Primary Care Provider] - Forms: [employer] (Malagasy)
--- NOTE | 2017-11-17 17:40 | CT ---
Date of service: 11/17/2017 PROCEDURE: CT Abdomen and Pelvis without intravenous contrast HISTORY: Right lower quadrant pain COMPARISON: 08/10/2009 CT abdomen and pelvis endplate sclerosis noted at multiple levels of the thoracic spine. Spell TECHNIQUE: Unenhanced study. Neither oral nor intravenous contrast administered. Sensitivity and specificity for acute inflammatory processes limited by the absence of oral and intravenous contrast. Radiation dose: Total exam DLP = 629.91 mGy-cm. This CT exam was performed using one or more of the following dose reduction techniques: Automated exposure control, adjustment of the mA and/or kV according to patient size, and/or use of iterative reconstruction technique. FINDINGS: LOWER THORAX: Incompletely visualize pericardial fusion. Maximal thickness at the level of the left ventricle 1.4 cm. This appears to be a chronic finding, it was seen on a prior CT of the abdomen and pelvis 04/18/2012. LIVER: Unremarkable. No gross lesion or ductal dilatation. GALLBLADDER AND BILE DUCTS: Status post cholecystectomy. No abnormality is seen in the gallbladder fossa. PANCREAS: Unremarkable. No gross lesion or ductal dilatation. SPLEEN: Unremarkable. ADRENALS: Unremarkable. No mass. KIDNEYS AND URETERS: Unremarkable. No hydronephrosis. No solid mass. VASCULATURE: Unremarkable. No aortic aneurysm. BOWEL: Constipation/fecal impaction without mechanical obstruction. APPENDIX: Unremarkable. Normal appendix. PERITONEUM: Unremarkable. No free fluid. No free air. LYMPH NODES: Unremarkable. No enlarged lymph nodes. BLADDER: Unremarkable. REPRODUCTIVE: Prior hysterectomy. BONES: Of height L2 vertebral body acuity/chronicity unknown. OTHER FINDINGS: None. IMPRESSION: No acute findings related to/accounting for the clinical presentation. Additional benign and/or incidental findings described above. Limitations of the current examination: Absence of oral and intravenous contrast.
--- NOTE | 2017-11-17 17:47 | RAD ---
PROCEDURE: Right Hip Radiographs. HISTORY: hip pain fall? COMPARISON: None. FINDINGS: BONES: No acute fracture. Components of right JADA satisfactory position and alignment. JOINTS: No acute findings SOFT TISSUES: Normal. OTHER FINDINGS: None. IMPRESSION: No acute findings related to/accounting for the clinical presentation.
--- NOTE | 2017-11-17 17:48 | CT ---
Date of service: 11/17/2017 PROCEDURE: CT of the right hip without contrast HISTORY: karthik ledesma ppain fall? sp JADA COMPARISON: Comparison is made to the previous CT of the head dated 02/18/2017 TECHNIQUE: Axial and reformatted coronal and sagittal CT images of the right hip were obtained without contrast administration. 3D reformatted images of the right hip were also obtained. Total exam DLP 484.88 FINDINGS: The patient status post total right hip replacement. The hardware is seen at appropriate position. There is no evidence of hardware failure or dislocation. No evidence of acute fracture in the right proximal femur or in the right pelvic bones. No evidence of hematoma or fluid collection around the right hip. The visualized portion of the pelvis demonstrate no acute pathology. IMPRESSION: No evidence of acute fracture or dislocation. Status post total right hip replacement.
[2017-11-17 19:47] VITALS: BP 152/102; PULSE 81; RESP 18; TEMP 97.8
[2017-11-18 16:22] VITALS: O2SAT 97
== END 2017-11-17 19:57 | disposition home or self-care (01) ==
LOC: H.ER 10:52 → SUPCPDRO 10:52 → H.ER 19:57
DX: R10.9 Unspecified abdominal pain (principal); M25.551 Pain in right hip; E11.9 Type 2 diabetes mellitus without complications; E78.00 Pure hypercholesterolemia, unspecified; F32.9 Major depressive disorder, single episode, unspecified; F41.9 Anxiety disorder, unspecified; I10 Essential (primary) hypertension; J44.9 Chronic obstructive pulmonary disease, unspecified; Z79.84 Long term (current) use of oral hypoglycemic drugs; Z88.0 Allergy status to penicillin; Z96.641 Presence of right artificial hip joint
CPT/HCPCS: 73501; 73700; 74176; 80048; 81003; 82948; 85025; 96374; 99284; J1885

== ENCOUNTER 2017-12-02 08:21 | Emergency (ER) | payer OTHER ==
[2017-12-02 08:27] VITALS: BMI 26.5
[2017-12-02 08:29] VITALS: TEMP 97
--- NOTE | 2017-12-02 09:08 | ED PDOC ---
HPI: Back Time Seen by Provider: 12/02/17 08:41 Chief Complaint (Nursing): Back Pain Chief Complaint (Provider): Back pain History Per: Patient History/Exam Limitations: no limitations Onset/Duration Of Symptoms: Days (today) Additional Complaint(s): Pt. accidentally rolled out of bed at 3am. Had to wait for the super to open the door so the ambulance can come in, so she came in now. Has pain on the right hip and right lower back. No numbness, tingles, weakness, headaches, neck pain, chest pain, dyspnea, fever, abd pain, arm pain. No dysuria. No incontinence or constipation. Not dizzy. Past Medical History Reviewed: Nursing Documentation, Vital Signs Vital Signs: Last Vital Signs Temp 97 F L 12/02/17 08:33 Pulse 98 H 12/02/17 08:33 Resp 20 12/02/17 08:33 BP 127/76 12/02/17 08:33 Pulse Ox 100 12/02/17 08:33 - Medical History PMH: Anxiety, Arthritis, Asthma, Depression, Diabetes, HTN, Hypercholesterolemia Denies: Chronic Kidney Disease - Surgical History Surgical History: Cholecystectomy, Tonsillectomy - Family History Family History: States: Unknown Family Hx - Social History Alcohol: None Drugs: Denies - Home Medications Home Medications: Ambulatory Orders Medication Instructions Recorded Albuterol Sulfate [Proair Hfa] 200 puff IH PRN PRN 03/04/17 Albuterol/Ipratropium [Duoneb 3 3 ml IH PRN PRN 03/04/17 mg/0.5 mg (3 ml) UD] Alprazolam [Xanax] 0.5 mg PO QID PRN 03/04/17 Ascorbic Acid [Vitamin C] 1,000 mg PO DAILY 03/04/17 Aspirin [Ecotrin] 81 mg PO DAILY 03/04/17 Atenolol [Tenormin] 50 mg PO DAILY 03/04/17 Atorvastatin [Lipitor] 40 mg PO DAILY 03/04/17 Folic Acid 1 mg PO DAILY 03/04/17 Glucosamine HCl 1,500 mg PO DAILY 03/04/17 Hydroxyzine HCl 25 mg PO DAILY 03/04/17 Memantine HCl/Donepezil HCl 1 each PO DAILY 03/04/17 [Namzaric 14 mg-10 mg Capsule] Multivitamin/Iron/Folic Acid 1 each PO DAILY 03/04/17 [Centrum Adults Tablet] Omeprazole 20 mg PO DAILY 03/04/17 QUEtiapine [Seroquel XR] 150 mg PO DAILY 03/04/17 Triazolam [Halcion] 0.25 mg PO HS 03/04/17 Celecoxib [celeBREX] 100 mg PO Q12 cap 03/06/17 Enoxaparin [Lovenox] 40 mg SC DAILY syr 03/06/17 hydroCHLOROthiazide [Microzide] 12.5 mg PO DAILY cap 03/06/17 metFORMIN [glucOPHAGE] 500 mg PO DAILY tab 03/06/17 oxyCODONE [oxyCONTIN Extended 10 mg PO Q12 #14 tab 03/06/17 Release Tab] oxyCODONE/Acetaminophen [Percocet 1 tab PO Q4 PRN #14 tab 03/06/17 5/325 mg Tab] Ibuprofen [Motrin] 600 mg PO TID 7 Days tab 12/02/17 - Allergies Allergies/Adverse Reactions: Allergies Allergy/AdvReac Type Severity Reaction Status Date / Time moxifloxacin [From Avelox] Allergy RASH Verified 12/02/17 08:37 Penicillins Allergy RASH Verified 12/02/17 08:37 Review of Systems Constitutional: Negative for: Weakness Eyes: Negative for: Vision Change Cardiovascular: Negative for: Chest Pain, Palpitations, Edema, Light Headedness Respiratory: Negative for: Shortness of Breath Gastrointestinal: Negative for: Nausea, Vomiting, Abdominal Pain, Diarrhea Musculoskeletal: Positive for: Back Pain. Negative for: Neck Pain, Shoulder Pain, Arm Pain Skin: Negative for: Rash Neurological: Negative for: Weakness, Numbness, Headache, Dizziness Physical Exam - Reviewed Nursing Documentation Reviewed: Yes Vital Signs Reviewed: Yes - Physical Exam Appears: Positive for: Non-toxic, No Acute Distress Head Exam: Positive for: ATRAUMATIC, NORMAL INSPECTION, NORMOCEPHALIC Skin: Positive for: Normal Color, Warm, DRY Eye Exam: Positive for: EOMI, Normal appearance, PERRL ENT: Positive for: Normal ENT Inspection Neck: Positive for: Normal, Painless ROM, Supple Cardiovascular/Chest: Positive for: Regular Rate, Rhythm Respiratory: Positive for: CNT, Normal Breath Sounds Gastrointestinal/Abdominal: Positive for: Normal Exam, Soft. Negative for: Tenderness Back: Positive for: Other (R lower mild tender) Extremity: Positive for: Normal ROM (with pain in right hip), Tenderness (mild right hip). Negative for: Pedal Edema, Calf Tenderness Neurologic/Psych: Positive for: Alert, emulsification operator II-XII, Oriented. Negative for: Aphasia - ECG ECG: Positive for: Interpreted By Me, Viewed By Me ECG Rhythm: Positive for: Normal QRS, Normal ST Segment, Sinus Rhythm O2 Sat by Pulse Oximetry: 100 Pulse Ox Interpretation: Normal - Radiology X-Ray: Interpreted by Me, Viewed By Me X-Ray Interpretation: Fracture (compression fx L2) - CT Scan/US ct Other Rad Studies (CT/US): Read By Radiologist Other Rad Interpretation: no acute - Progress ED Course And Treament: 1147: Stable. AAOx3. Pain controlled. Spoke with Dr. Pollard. Will come to the ER to see pt. 1327: Dr. Pollard saw pt. States lumbar issues are old. Wants CT hip, if no acute can dc. 1454: Stable. AAOx3. Pain free. Tolerated PO. Fu with pcp. Ambulated with no issues. Disposition - Clinical Impression Clinical Impression: Hip pain, Low back pain - Patient ED Disposition Is Patient to be Admitted: No Counseled Patient/Family Regarding: Studies Performed, Diagnosis, Need For Followup, Rx Given - Disposition Referrals: [facility] [Outside] - 12/03/17 Disposition: Routine/Home Disposition Time: 14:56 Condition: STABLE Additional Instructions: Return if not better in 3 days. Prescriptions: Ibuprofen [Motrin] 600 mg PO TID 7 Days tab Instructions: Hip Pain in Older People, Chronic Pain, Low Back Pain (DC) Print Language: MALAYSIAN
--- NOTE | 2017-12-02 10:41 | RAD ---
PROCEDURE: Right Hip Radiographs. HISTORY: fall and injury COMPARISON: None. FINDINGS: BONES: Prior right hip arthroplasty. No acute fracture. Spinal degenerative changes. JOINTS: Normal. SOFT TISSUES: Normal. OTHER FINDINGS: None. IMPRESSION: Prior right hip arthroplasty without evidence of hardware complication.
--- NOTE | 2017-12-02 10:44 | RAD ---
Date of service: 12/02/2017 PROCEDURE: Radiographs of the Lumbar Spine. HISTORY: back pain COMPARISON: No prior. FINDINGS: BONES: Dextro convex curvature of the lumbar spine centered at L3. Stable compression fracture of L2. No listhesis. DISC SPACES: Multilevel disc space narrowing. OTHER FINDINGS: None. IMPRESSION: Multilevel degenerative changes. Compression fracture of L2, age indeterminate.
[2017-12-02] MEDS ORDERED: Pantoprazole 40 mg EC Tab PO STA (13:35)
[2017-12-02] MEDS ORDERED: Pantoprazole 40 mg EC Tab PO ONE (14:04)
--- NOTE | 2017-12-02 14:30 | CT ---
Date of service: 12/02/2017 PROCEDURE: CT of the Right Hip. HISTORY: hip pain COMPARISON: Plain radiographs performed earlier the same day. TECHNIQUE: Contiguous axial images of the right hip were obtained. Coronal and sagittal reformats were generated. This CT exam was performed using one or more of the following dose reduction techniques: Automated exposure control, adjustment of the mA and/or kV according to patient size, and/or use of iterative reconstruction technique. FINDINGS: BONES: Bone alignment is normal. There is mild diffuse bone demineralization. Status post total right hip arthroplasty. No evidence for acute displaced fracture or dislocation. No evidence for loosening or hardware complications. RIGHT HIP JOINT: Total hip arthroplasty. SOFT TISSUES: The periarticular muscles are normal. There is mild subcutaneous edema in the lateral gluteal region. IMPRESSION: Status post total right hip arthroplasty, no acute displaced fracture or dislocation. No hardware complications. Mild subcutaneous edema in the lateral soft tissues.
[2017-12-02 15:18] VITALS: O2SAT 98
[2017-12-02 15:45] VITALS: BP 170/98; PULSE 81; RESP 18
--- NOTE | 2017-12-02 22:43 | CARD ---
APPROVED REPORT Date of service: 12/02/2017 EKG Measurement Heart [id number] <Conclusion> Sinus rhythm with 1st degree AV block Otherwise normal ECG
--- NOTE | 2017-12-03 08:27 | CON ---
Copied To: Edvin Pollard MD Attending MD: Edvin Pollard MD DATE: 12/02/2017 ER CONSULT REASON FOR CONSULTATION: Low back pain after a fall. HISTORY OF PRESENT ILLNESS: The patient was seen in the emergency room with her nurse helping to translate. Ms. Wise states that she fell out of bed early this morning onto her right side. She was brought to the emergency room with complaints of pain over the right hip and right lower buttock area. She only complains of some radicular pain complaints in the front of the right thigh. No loss of bowel or bladder control. She states she has had similar kind of pain for a while, but they are worse now after her fall. PAST MEDICAL HISTORY: Significant for asthma, depression, diabetes, hypertension, and hypercholesterolemia. MEDICATIONS: As listed on the chart and appears she is not insulin dependent. ALLERGIES: SHE STATES SHE IS ALLERGIC TO AVELOX WELL PENICILLIN. PAST SURGICAL HISTORY: Significant for cholecystectomy, tonsillectomy as well as the right hip replacement done in 02/2017. PHYSICAL EXAMINATION: MUSCULOSKELETAL: She does not have any significant tenderness to palpation over the lumbar spinous processes. Little tender in the right buttock area. She is exquisitely tender to palpation over the right trochanteric region. Gentle log rolling of the right lower extremity does not give any increased pain, but when tried to flex the hip and rotate a little bit, again she complaints of pain over the trochanteric region on the right side. NEUROLOGIC: Her sensory and motor exams are completely intact in both lower extremities. No clonus or Babinski is present. The x-ray of the lumbar spine shows a significant compression fracture of L2 where it is pancaked. Again, this would appear to be old in nature and certainly not something acute. She has right lumbar scoliosis which puts the convexity on the right side, which would open in the neural foramina, so unlikely she has any significant foraminal stenosis on that side. One can see her right hip replacement. The films are read showing no obvious problem with the hip prosthesis. There is just some hazy calcification around the trochanter itself, but again the prosthesis would appear to be in good position. This compression fracture again appears to be quite old. It was present on the CAT scan done two weeks ago of her abdomen and pelvis on a previous visit here to the emergency room. I do not think any acute treatment is needed for the spine. This appears to be more an issue with either trochanteric bursitis from her fall or just a chronic issue which she told the nurse that she had pain that ever since she had the hip replacement done and this happens to be worse after her fall now. Therefore, I would suggest she follow up with her orthopedist accordingly. Thank you for allowing me to participate in the care of this patient. Edvin Pollard MD [facility]
== END 2017-12-02 15:40 | disposition home or self-care (01) ==
LOC: H.ER 08:21
DX: S32.000A Wedge compression fracture of unspecified lumbar vertebra, initial encounter for closed fracture (principal); E11.9 Type 2 diabetes mellitus without complications; E78.00 Pure hypercholesterolemia, unspecified; I10 Essential (primary) hypertension; W06.XXXA Fall from bed, initial encounter; Y92.003 Bedroom of unspecified non-institutional (private) residence as the place of occurrence of the external cause; Z79.84 Long term (current) use of oral hypoglycemic drugs; Z88.0 Allergy status to penicillin; Z96.641 Presence of right artificial hip joint
CPT/HCPCS: 72114; 73503; 73700; 93005; 96372; 99285; J1885

== ENCOUNTER 2018-01-26 19:48 | Emergency (ER) | payer OTHER ==
[2018-01-26 19:48] VITALS: BMI 26.5
--- NOTE | 2018-01-26 22:00 | ED PDOC ---
HPI: Hypertension/Hypotension Time Seen by Provider: 01/26/18 20:08 Chief Complaint (Nursing): High Blood Pressure Chief Complaint (Provider): High Blood Pressure History Per: Patient History/Exam Limitations: no limitations Onset/Duration Of Symptoms: Hrs Current Symptoms Are (Timing): Still Present Additional Complaint(s): 72 y/o female with a PMHx of HTN and Anxiety brought in via EMS for evaluation of high blood pressure earlier today. Patient states when checking her blood pressure at home, the monitor read 180/90 thus prompting her to call EMS who then brought the patient here for further evaluation. Patient states high blood pressure is associated with a headache. Patient reports of having gotten a vaccination to the right arm recently. Patient is also complaining of swelling to the bilateral feet. Otherwise denies fever, vomiting and abdominal pain. PMD: Mumtaz Polanco Past Medical History Reviewed: Historical Data, Nursing Documentation, Vital Signs Vital Signs: Last Vital Signs Temp 98.4 F 01/26/18 19:50 Pulse 109 H 01/26/18 19:50 Resp 22 01/26/18 19:50 BP 156/115 H 01/26/18 19:50 Pulse Ox 99 01/26/18 19:50 - Medical History PMH: Anxiety, Arthritis, Asthma, Depression, Diabetes, HTN, Hypercholesterolemia Denies: Chronic Kidney Disease - Surgical History Surgical History: Cholecystectomy, Tonsillectomy Other surgeries: Hip Replacement - Family History Family History: States: Unknown Family Hx - Home Medications Home Medications: Ambulatory Orders Medication Instructions Recorded Albuterol Sulfate [Proair Hfa] 200 puff IH PRN PRN 03/04/17 Albuterol/Ipratropium [Duoneb 3 3 ml IH PRN PRN 03/04/17 mg/0.5 mg (3 ml) UD] Alprazolam [Xanax] 0.5 mg PO QID PRN 03/04/17 Ascorbic Acid [Vitamin C] 1,000 mg PO DAILY 03/04/17 Aspirin [Ecotrin] 81 mg PO DAILY 03/04/17 Atenolol [Tenormin] 50 mg PO DAILY 03/04/17 Atorvastatin [Lipitor] 40 mg PO DAILY 03/04/17 Folic Acid 1 mg PO DAILY 03/04/17 Glucosamine HCl 1,500 mg PO DAILY 03/04/17 Hydroxyzine HCl 25 mg PO DAILY 03/04/17 Memantine HCl/Donepezil HCl 1 each PO DAILY 03/04/17 [Namzaric 14 mg-10 mg Capsule] Multivitamin/Iron/Folic Acid 1 each PO DAILY 03/04/17 [Centrum Adults Tablet] Omeprazole 20 mg PO DAILY 03/04/17 QUEtiapine [Seroquel XR] 150 mg PO DAILY 03/04/17 Triazolam [Halcion] 0.25 mg PO HS 03/04/17 Celecoxib [celeBREX] 100 mg PO Q12 cap 03/06/17 Enoxaparin [Lovenox] 40 mg SC DAILY syr 03/06/17 hydroCHLOROthiazide [Microzide] 12.5 mg PO DAILY cap 03/06/17 metFORMIN [glucOPHAGE] 500 mg PO DAILY tab 03/06/17 oxyCODONE [oxyCONTIN Extended 10 mg PO Q12 #14 tab 03/06/17 Release Tab] oxyCODONE/Acetaminophen [Percocet 1 tab PO Q4 PRN #14 tab 03/06/17 5/325 mg Tab] Ibuprofen [Motrin] 600 mg PO TID 7 Days tab 12/02/17 - Allergies Allergies/Adverse Reactions: Allergies Allergy/AdvReac Type Severity Reaction Status Date / Time moxifloxacin [From Avelox] Allergy RASH Verified 12/02/17 08:37 Penicillins Allergy RASH Verified 12/02/17 08:37 Review of Systems ROS Statement: Except As Marked, All Systems Reviewed And Found Negative Constitutional: Positive for: Other (High Blood Pressure). Negative for: Fever Gastrointestinal: Negative for: Vomiting, Abdominal Pain Neurological: Positive for: Headache Physical Exam - Reviewed Nursing Documentation Reviewed: Yes Vital Signs Reviewed: Yes - Physical Exam Appears: Positive for: No Acute Distress Head Exam: Positive for: ATRAUMATIC, NORMOCEPHALIC Skin: Positive for: Normal Color, Warm, Dry Eye Exam: Positive for: Normal appearance, EOMI, PERRL Neck: Positive for: Normal Cardiovascular/Chest: Positive for: Regular Rate, Rhythm. Negative for: Murmur Respiratory: Positive for: Normal Breath Sounds. Negative for: Respiratory D istress Extremity: Positive for: Normal ROM, Swelling (bilateral lower leg swelling) Neurologic/Psych: Positive for: Alert, Oriented. Negative for: Motor/Sensory Deficits - Laboratory Results Result Diagrams: 01/26/18 22:35 01/26/18 22:35 - ECG ECG Rhythm: Positive for: Sinus Rhythm (with low voltage) Rate: 98 O2 Sat by Pulse Oximetry: 99 (RA) Pulse Ox Interpretation: Normal Medical Decision Making Medical Decision Making: Time: 2154 Plan: -- CMP -- CBC with Differential -- Clonidine 0.1 mg PO Time: 23:38 -blood pressure came down, patient is ready to go and will follow up with PMD Dr. Polanco Scribe Attestation: Documented by Neville Villalobos, acting as a scribe for Ameena Brito MD. Provider Scribe Attestation: All medical record entries made by the Scribe were at my direction and personally dictated by me. I have reviewed the chart and agree that the record accurately reflects my personal performance of the history, physical exam, medical decision making, and the department course for this patient. I have also personally directed, reviewed, and agree with the discharge instructions and disposition. Disposition - Clinical Impression Clinical Impression: HTN (hypertension) - Disposition Disposition: Routine/Home Disposition Time: 23:38 Condition: IMPROVED Additional Instructions: follow up with your primary doctor Dr Polanco in 1-2 days return to the ED with any worsening or concerning symptoms Instructions: High Blood Pressure in Adults Forms: [facility] (Croatian), [facility] (Maltese) Print Language: AFGHAN
[2018-01-26] MEDS ORDERED: Oxycodone/Acetaminophen 5/325 mg Tab PO STA (22:06)
[2018-01-26] MEDS ORDERED: Oxycodone/Acetaminophen 5/325 mg Tab ONE (22:08)
[2018-01-26 22:39] LABS: BASO % 0.7 % (0.0-2.0); EOS # 0.2 K/uL (0.0-0.7); EOS % 3.9 % (0.0-4.0); HEMOGLOBIN 11.5 g/dL (12.0-16.0); LYMPH # 1.4 K/uL (1.0-4.3); LYMPH % 22.8 % (20.0-40.0); MEAN CELL VOLUME 93.2 fl (81.0-99.0); MEAN CORPUSCULAR HEMOGLOBIN 31.3 pg (27.0-31.0); MEAN CORPUSCULAR HGB CONC 33.6 g/dL (33.0-37.0); MEAN PLATELET VOLUME 8.2 fl (7.2-11.7); MONO # 0.5 K/uL (0.0-0.8); MONO % 7.9 % (0.0-10.0); NEUT # 3.9 K/uL (1.8-7.0); NEUT % 64.7 % (50.0-75.0); NRBC % 0.2 % (0.0-0.0); RBC 3.69 Mil/uL (3.80-5.20); RED CELL DISTRIBUTION WIDTH 13.4 % (11.5-14.5)
[2018-01-26 22:49] LABS: ALB/GLOB RATIO 1.4 (1.0-2.1); CALCIUM 9.2 mg/dL (8.4-10.2)
[2018-01-26 23:53] VITALS: BP 137/81; PULSE 85; RESP 16; TEMP 98.1; O2SAT 97
== END 2018-01-26 23:56 | disposition home or self-care (01) ==
LOC: H.ER 19:48
DX: I10 Essential (primary) hypertension (principal); E11.9 Type 2 diabetes mellitus without complications; E78.00 Pure hypercholesterolemia, unspecified; Z79.84 Long term (current) use of oral hypoglycemic drugs; Z88.0 Allergy status to penicillin

== ENCOUNTER 2018-08-05 11:59 | Inpatient (IN) | payer OTHER ==
[2018-08-05 11:59] VITALS: BMI 26.5
--- NOTE | 2018-08-05 13:33 | ED PDOC ---
Lower Extremity Pain/Injury Time Seen by Provider: 08/05/18 12:48 Chief Complaint (Nursing): Lower Extremity Problem/Injury Chief Complaint (Provider): Lower Extremity Problem/Injury History Per: Patient History/Exam Limitations: no limitations Onset/Duration Of Symptoms: Other (2 weeks) Additional Complaint(s): 72 y/o female presents to the ED due to bilateral leg pain thats been ongoing for 2 weeks. Patient states she has pain on her lower leg and right hip. She admits taking Oxycodone for the pain that was prescribe by PMD. She reports she spoke to him and was instructed to come to the ER if the pain continues. Patient denies chest pain, difficulty breathing, or any injuries. PMD: Dr. Polanco Past Medical History Reviewed: Historical Data, Nursing Documentation, Vital Signs Vital Signs: Last Vital Signs Temp 97.6 F 08/05/18 12:06 Pulse 88 08/05/18 12:06 Resp 17 08/05/18 12:06 BP 145/101 H 08/05/18 12:06 Pulse Ox 98 08/05/18 12:06 Primary Care Provider: Mumtaz Polanco - Medical History PMH: Anxiety, Arthritis, Asthma, Depression, Diabetes, HTN, Hypercholesterolemia Denies: Chronic Kidney Disease - Surgical History Surgical History: Cholecystectomy, Tonsillectomy Other surgeries: Right hip replacement. Bilateral ankle surgery. - Family History Family History: States: No Known Family Hx, Unknown Family Hx - Immunization History Hx Tetanus Toxoid Vaccination: Yes Hx Influenza Vaccination: Yes Hx Pneumococcal Vaccination: No - Home Medications Home Medications: Ambulatory Orders Medication Instructions Recorded Albuterol Sulfate [Proair Hfa] 2 puff IH Q4 PRN 03/04/17 Alprazolam [Xanax] 0.5 mg PO QID PRN 03/04/17 Aspirin [Ecotrin] 81 mg PO DAILY 03/04/17 Atorvastatin [Lipitor] 40 mg PO DAILY 03/04/17 Memantine HCl/Donepezil HCl 1 cap PO DAILY 03/04/17 [Namzaric 14 mg-10 mg Capsule] Omeprazole 20 mg PO DAILY 03/04/17 QUEtiapine [Seroquel XR] 150 mg PO QPM 03/04/17 Triazolam [Halcion] 0.5 mg PO HS 03/04/17 Budesonide/Formoterol Fumarate 2 puff IH Q12 08/05/18 [Symbicort 160-4.5 Mcg Inhaler] Furosemide [Lasix] 20 mg PO DAILY 08/05/18 Gabapentin [Neurontin] 300 mg PO HS 08/05/18 Levocetirizine Dihydrochloride 5 mg PO DAILY 08/05/18 [Xyzal] Losartan/Hydrochlorothiazide 1 tab PO DAILY 08/05/18 [Losartan-Hctz 100-12.5 mg Tab] Naproxen [Naprosyn] 500 mg PO Q12 PRN 08/05/18 Polyethylene Glycol 3350 [Miralax] 17 gm PO DAILY 08/05/18 oxyCODONE/Acetaminophen [Percocet 1 tab PO Q4 PRN 08/05/18 5/325 mg Tab] traMADol [Ultram] 50 mg PO Q6 PRN 08/05/18 - Allergies Allergies/Adverse Reactions: Allergies Allergy/AdvReac Type Severity Reaction Status Date / Time moxifloxacin [From Avelox] Allergy RASH Verified 08/05/18 12:08 Penicillins Allergy RASH Verified 08/05/18 12:08 Review of Systems ROS Statement: Except As Marked, All Systems Reviewed And Found Negative Cardiovascular: Negative for: Chest Pain Respiratory: Negative for: Shortness of Breath Musculoskeletal: Positive for: Leg Pain (bilateral ), Other (hip pain) Physical Exam - Reviewed Nursing Documentation Reviewed: Yes Vital Signs Reviewed: Yes - Physical Exam Appears: Positive for: Well, Non-toxic, No Acute Distress Head Exam: Positive for: ATRAUMATIC, NORMAL INSPECTION, NORMOCEPHALIC Skin: Positive for: Normal Color, Warm, Dry Eye Exam: Positive for: EOMI, Normal appearance, PERRL ENT: Positive for: Normal ENT Inspection Neck: Positive for: Normal, Painless ROM, Supple Cardiovascular/Chest: Positive for: Regular Rate, Rhythm. Negative for: Murmur Respiratory: Positive for: Normal Breath Sounds. Negative for: Wheezing Gastrointestinal/Abdominal: Positive for: Normal Exam, Soft. Negative for: Tenderness Back: Positive for: Normal Inspection. Negative for: L CVA Tenderness, R CVA Tenderness Extremity: Positive for: Normal ROM, Swelling (left leg swollen.). Negative for: Tenderness, Deformity Neurological/Psych: Positive for: Awake, Alert, Normal Tone, Oriented (x3). Negative for: Motor/Sensory Deficits - Laboratory Results Result Diagrams: 08/05/18 13:30 08/05/18 13:30 - ECG O2 Sat by Pulse Oximetry: 98 - Progress Re-evaluation Time: 15:00 Condition: Re-examined, Unchanged Medical Decision Making Medical Decision Making: Time:1303 Initial Impression: Chronic leg pain. Arthritis, rule out DVT. Initial Plan: -BNP -BMP -CBC -Creatine -Erythrocyte sedimentation -x-ray -CT -US 1434: FINDINGS: COMMON FEMORAL VEIN: Right CFV: Unremarkable. Left CFV: Unremarkable. SUPERFICIAL FEMORAL VEIN: Right SFV: Unremarkable. Left SFV: Unremarkable. POPLITEAL VEIN: Right Popliteal: Unremarkable. Left Popliteal: Unremarkable. POSTERIOR TIBIAL VEIN: Right PTV: Unremarkable. Left PTV: Unremarkable. OTHER FINDINGS: None. IMPRESSION: No evidence of deep venous thrombosis. 1443: FINDINGS: BONES: The pelvic ring is intact. There is diffuse bone demineralization. There is no acute displaced fracture or bone destruction. JOINTS: Status post right hip arthroplasty. No evidence for hardware complications. No dislocation. The left hip joint space is preserved. The sacroiliac joints are normal. There is mild osteitis pubis. SOFT TISSUES: Normal. OTHER FINDINGS: None. IMPRESSION: No acute displaced fracture or dislocation. Status post right hip arthroplasty, no hardware complications. 1443: FINDINGS: BONES: Normal. No fracture. JOINTS: There is mild tricompartmental degenerative osteoarthrosis with reduced joint spaces, marginal osteophytes and tibial spiking, worse in the medial com partment. JOINT EFFUSION: None. OTHER FINDINGS: There is an ovoid calcification medial to the medial tibial plateau likely ligamentous calcification.. IMPRESSION: No acute fracture or dislocation. Mild tricompartmental degenerative osteoarthrosis, worse in the medial c ompartment. 1443: FINDINGS: BONES: Bone alignment and mineralization are normal. There is no acute displaced fracture or bone destruction. JOINTS: Normal. JOINT EFFUSION: There is a small suprapatellar joint effusion. OTHER FINDINGS: None. IMPRESSION: No acute displaced fracture or dislocation. Scribe Attestation: Documented by Elise Negro, acting as a scribe for Russ Gil Provider Scribe Attestation: All medical record entries made by the Scribe were at my direction and personally dictated by me. I have reviewed the chart and agree that the record accurately reflects my personal performance of the history, physical exam, medical decision making, and the department course for this patient. I have also personally directed, reviewed, and agree with the discharge instructions and disposition. Disposition - Clinical Impression Clinical Impression: Intractable pain, Knee pain, Leg pain - Patient ED Disposition Is Patient to be Admitted: Yes Discussed With : Mumtaz Polanco Doctor Will See Patient In The: Hospital Counseled Patient/Family Regarding: Studies Performed, Diagnosis - Disposition Disposition Time: 15:00 Condition: FAIR - Pt Status Changed To: Hospital Disposition Of: Observation - POA Present On Arrival: None
[2018-08-05 13:41] LABS: BASO % 0.6 % (0.0-2.0); EOS # 0.4 K/uL (0.0-0.7); EOS % 6.3 % (0.0-4.0); HEMOGLOBIN 12.4 g/dL (12.0-16.0); LYMPH # 1.1 K/uL (1.0-4.3); MEAN CELL VOLUME 93.6 fl (81.0-99.0); MEAN CORPUSCULAR HEMOGLOBIN 31.8 pg (27.0-31.0); MEAN PLATELET VOLUME 8.3 fl (7.2-11.7); MONO # 0.6 K/uL (0.0-0.8); MONO % 10.1 % (0.0-10.0); NEUT # 3.7 K/uL (1.8-7.0); NRBC % 0.1 % (0.0-0.0); RBC 3.89 Mil/uL (3.80-5.20); RED CELL DISTRIBUTION WIDTH 13.5 % (11.5-14.5); WHITE BLOOD COUNT 5.8 K/uL (4.8-10.8)
[2018-08-05 13:54] LABS: BLOOD UREA NITROGEN 24 mg/dl (7-17); CALCIUM 9.2 mg/dL (8.4-10.2); GFR NON-AFRICAN AMERICAN 55
[2018-08-05 14:02] LABS: B-TYPE NATRIURETIC PEPTIDE 382 pg/ml (0-900)
--- NOTE | 2018-08-05 14:55 | RAD ---
Date of service: 08/05/2018 PROCEDURE: Right Knee Radiographs. HISTORY: knee pain atraumatic COMPARISON: None. TECHNIQUE: 3 views obtained. FINDINGS: BONES: Normal. No fracture. JOINTS: There is mild tricompartmental degenerative osteoarthrosis with reduced joint spaces, marginal osteophytes and tibial spiking, worse in the medial compartment. JOINT EFFUSION: None. OTHER FINDINGS: There is an ovoid calcification medial to the medial tibial plateau likely ligamentous calcification.. IMPRESSION: No acute fracture or dislocation. Mild tricompartmental degenerative osteoarthrosis, worse in the medial compartment.
--- NOTE | 2018-08-05 14:55 | RAD ---
Date of service: 08/05/2018 PROCEDURE: Left Knee Radiographs. HISTORY: Pain. COMPARISON: None. TECHNIQUE: 3 views obtained. FINDINGS: BONES: Bone alignment and mineralization are normal. There is no acute displaced fracture or bone destruction. JOINTS: Normal. JOINT EFFUSION: There is a small suprapatellar joint effusion. OTHER FINDINGS: None. IMPRESSION: No acute displaced fracture or dislocation.
--- NOTE | 2018-08-05 14:56 | RAD ---
PROCEDURE: Right Hip Radiographs. HISTORY: right hip pain COMPARISON: None. TECHNIQUE: 3 views obtained. FINDINGS: BONES: The pelvic ring is intact. There is diffuse bone demineralization. There is no acute displaced fracture or bone destruction. JOINTS: Status post right hip arthroplasty. No evidence for hardware complications. No dislocation. The left hip joint space is preserved. The sacroiliac joints are normal. There is mild osteitis pubis. SOFT TISSUES: Normal. OTHER FINDINGS: None. IMPRESSION: No acute displaced fracture or dislocation. Status post right hip arthroplasty, no hardware complications.
--- NOTE | 2018-08-05 15:19 | US ---
Date of service: 08/05/2018 PROCEDURE: Bilateral lower extremity venous duplex Doppler. HISTORY: lower leg swelling and pain Left> Right COMPARISON: Right venous duplex Doppler from 03/21/2017. TECHNIQUE: Bilateral common femoral, superficial femoral, popliteal and posterior tibial veins were evaluated. Flow was assessed with color Doppler, compressibility, assessment of phasic flow and augmentation response. FINDINGS: COMMON FEMORAL VEIN: Right CFV: Unremarkable. Left CFV: Unremarkable. SUPERFICIAL FEMORAL VEIN: Right SFV: Unremarkable. Left SFV: Unremarkable. POPLITEAL VEIN: Right Popliteal: Unremarkable. Left Popliteal: Unremarkable. POSTERIOR TIBIAL VEIN: Right PTV: Unremarkable. Left PTV: Unremarkable. OTHER FINDINGS: None. IMPRESSION: No evidence of deep venous thrombosis.
[2018-08-05] MEDS ORDERED: Oxycodone/Acetaminophen 5/325 mg Tab PO PRN (20:04)
[2018-08-05] MEDS ORDERED: POLYETHYLENE GLYCOL 3350 17 GM/Dose PACKET PO PRN (20:05)
[2018-08-05] MEDS ORDERED: TRIAZOLAM 0.5 MG PO SCH (22:00)
[2018-08-06 01:11] LABS: SQUAMOUS EPITHIAL < 1 /hpf (0-5); URINE BACTERIA OCC (<OCC); URINE BILIRUBIN NEGATIVE (NEGATIVE); URINE BLOOD NEGATIVE (NEGATIVE); URINE CLARITY CLEAR (Clear); URINE COLOR STRAW (YELLOW); URINE GLUCOSE (UA) NEG (NEGATIVE); URINE LEUKOCYTE ESTERASE TRACE Leu/uL (Negative); URINE PROTEIN NEGATIVE (NEGATIVE); URINE UROBILINOGEN 0.2-1.0 mg/dL (0.2-1.0)
[2018-08-06 07:08] LABS: HEMOGLOBIN 11.2 g/dL (12.0-16.0); MEAN CELL VOLUME 92.7 fl (81.0-99.0); MEAN CORPUSCULAR HEMOGLOBIN 31.7 pg (27.0-31.0); MEAN CORPUSCULAR HGB CONC 34.2 g/dL (33.0-37.0); RBC 3.53 Mil/uL (3.80-5.20); RED CELL DISTRIBUTION WIDTH 13.4 % (11.5-14.5); WHITE BLOOD COUNT 4.3 K/uL (4.8-10.8)
[2018-08-06 07:18] LABS: LDL CHOLESTEROL 48 mg/dL (0-129)
[2018-08-06 07:49] LABS: ALB/GLOB RATIO 1.6 (1.0-2.1); ALBUMIN 3.6 g/dL (3.5-5.0); ALT/SGPT 27 U/L (9-52); AST/SGOT 26 U/L (14-36); BLOOD UREA NITROGEN 15 mg/dl (7-17); CALCIUM 8.6 mg/dL (8.4-10.2); GFR NON-AFRICAN AMERICAN > 60; HDL CHOLESTEROL 47 MG/DL (30-70)
--- NOTE | 2018-08-06 07:59 | CP.PCM.CON ---
History of Present Illness - History of Present Illness History of Present Illness: Orthopedic consultation Dr. Patten 72F [address] Patten s/p R hip THR 02/2017, complains of 3 weeks of right hip and bilateral groin pain and LLE swelling. She says she also has pain in her knees. She denies any trauma or falls. She says the pain shoots down back of legs also. Denies pain in upper extremities. Denies neck pain. Admits to back pain as well. Denies numbness/tingling. Review of Systems - Review of Systems All systems: reviewed and no additional remarkable complaints except - Musculoskeletal Musculoskeletal: As Per HPI Past Patient History - Infectious Disease Hx of Infectious Diseases: None - Past Medical History & Family History Past Medical History?: Yes Past Family History: Reviewed and not pertinent - Past Social History Smoking Status: Former Smoker - CARDIAC Hx Cardiac Disorders: Yes Hx Hypercholesterolemia: Yes Hx Hypertension: Yes - PULMONARY Hx Respiratory Disorders: Yes Hx Asthma: Yes - NEUROLOGICAL Hx Neurological Disorder: No - HEENT Hx HEENT Problems: Yes Hx Cataracts: Yes (no surgery yet) - RENAL Hx Chronic Kidney Disease: No - ENDOCRINE/METABOLIC Hx Endocrine Disorders: Yes Other/Comment: Diabetes - HEMATOLOGICAL/ONCOLOGICAL Hx Blood Disorders: No Hx Blood Transfusions: No - INTEGUMENTARY Hx Dermatological Problems: No - MUSCULOSKELETAL/RHEUMATOLOGICAL Hx Falls: No - GASTROINTESTINAL Hx Gastrointestinal Disorders: Yes Hx Gastroesophageal Reflux: Yes - GENITOURINARY/GYNECOLOGICAL Hx Genitourinary Disorders: No - PSYCHIATRIC Hx Substance Use: No - SURGICAL HISTORY Hx Surgeries: Yes Hx Cholecystectomy: Yes Hx Tonsillectomy: Yes - ANESTHESIA Hx Anesthesia: Yes Hx Anesthesia Reactions: No Hx Malignant Hyperthermia: No Meds Allergies/Adverse Reactions: Allergies Allergy/AdvReac Type Severity Reaction Status Date / Time moxifloxacin [From Avelox] Allergy RASH Verified 08/05/18 12:08 Penicillins Allergy RASH Verified 08/05/18 12:08 - Medications Medications: Current Medications Albuterol/Ipratropium (Duoneb 3 Mg/0.5 Mg (3 Ml) Ud) 3 ml INH RTID OMAYRA Alprazolam (Xanax) 0.5 mg PO QID PRN PRN Reason: Anxiety Aspirin (Ecotrin) 81 mg PO DAILY OMA[facility]RA Atorvastatin Calcium (Lipitor) 40 mg PO HS OMAYRA Last Admin: 08/05/18 21:46 Dose: 40 mg Diphenhydramine HCl (Benadryl) 25 mg PO Q6 PRN PRN Reason: Allergy symptoms Last Admin: 08/05/18 22:47 Dose: 25 mg Furosemide (Lasix) 20 mg PO DAILY [facility] Gabapentin (Neurontin) 300 mg PO HS OMAYRA Last Admin: 08/05/18 21:46 Dose: 300 mg Home Med (Memantine Hcl/Donepezil Hcl [Namzaric 14 Mg-10 Mg Capsule]) 1 cap PO DAILY [facility] Home Med (Quetiapine [Seroquel Xr]) 150 mg PO QPM [facility] Home Med (Triazolam [Halcion]) 0.5 mg PO HS [facility] Hydrochlorothiazide (Microzide) 12.5 mg PO DAILY [facility] Loratadine (Claritin) 10 mg PO DAILY [facility] Losartan Potassium (Cozaar) 100 mg PO DAILY [facility] Morphine Sulfate (Morphine) 4 mg IVP Q4 PRN PRN Reason: Pain, severe (8-10) Last Admin: 08/05/18 20:34 Dose: 4 mg Oxycodone/Acetaminophen (Percocet 5/325 Mg Tab) 2 tab PO Q4 PRN PRN Reason: Pain, moderate (4-7) Stop: 08/08/18 20:05 Pantoprazole Sodium (Protonix Ec Tab) 40 mg PO DAILY [facility] Polyethylene Glycol (Miralax) 17 gm PO DAILY PRN PRN Reason: Constipation Zolpidem Tartrate (Ambien) 5 mg PO HS PRN PRN Reason: Sleep Last Admin: 08/05/18 22:22 Dose: 5 mg Physical Exam - Constitutional Appears: Well, No Acute Distress - Head Exam Head Exam: ATRAUMATIC - Neck Exam Neck exam: Positive for: Full Rom, Normal Inspection - Expanded Lower Extremities Exam Right Hip exam: full ROM (complains of groin pain, posterior thigh pain) Knee exam: normal inspection (minimal medial tenderness, no effusion, no erythema, skin intact) Ankle exam: FULL ROM (5/5 strength to great toe ext, DF/PF, knee flex/ext, pain with active hip flexion) Neuro vacular tendon exam: no vascular compromise (+DP/PT pulses RLE) - Neurological Exam Neurological exam: Alert, Oriented x3 Additional comments: patient drowsy - Psychiatric Exam Psychiatric exam: Normal Affect, Normal Mood - Skin Skin Exam: Dry, Intact, Normal Color, Warm Additional comments: noted 2+edema to LLE to above knee no edema to RLE Results - Vital Signs Recent Vital Signs: Last Vital Signs Temp 97.6 F 08/06/18 07:33 Pulse 68 08/06/18 07:33 Resp 18 08/06/18 07:33 BP 110/71 08/06/18 07:33 Pulse Ox 97 08/06/18 07:33 - Labs Result Diagrams: 08/06/18 06:35 08/06/18 06:35 Labs: Laboratory Results - last 24 hr 08/05/18 08/05/18 08/05/18 13:30 13:30 15:31 WBC 5.8 RBC 3.89 Hgb 12.4 Hct 36.4 MCV 93.6 MCH 31.8 H MCHC 34.0 RDW 13.5 Plt Count 173 MPV 8.3 Neut % (Auto) 64.0 Lymph % (Auto) 19.0 L [place] % (Auto) 10.1 H Eos % (Auto) 6.3 H Baso % (Auto) 0.6 Neut # (Auto) 3.7 Lymph # (Auto) 1.1 [place] # (Auto) 0.6 Eos # (Auto) 0.4 Baso # (Auto) 0.0 ESR 16 Sodium 133 Potassium 3.4 L Chloride 91 L Carbon Dioxide 33 H Anion Gap 12 BUN 24 H Creatinine 1.0 Est GFR ( Amer) > 60 Est GFR (Non-Af Amer) 55 POC Glucose (mg/dL) 132 H Random Glucose 95 Calcium 9.2 Magnesium Total Bilirubin AST ALT Alkaline Phosphatase Total Creatine Kinase 183 H NT-Pro-B Natriuret Pep 382 Total Protein Albumin Globulin Albumin/Globulin Ratio Triglycerides Cholesterol LDL Cholesterol Direct HDL Cholesterol Thyroxine (T4) TSH 3rd Generation Urine Color Urine Clarity Urine pH Ur Specific [place] Urine Protein Urine Glucose (UA) Urine Ketones Urine Blood Urine Nitrate Urine Bilirubin Urine Urobilinogen Ur Leukocyte Esterase Urine RBC (Auto) Urine Microscopic WBC Ur Squamous Epith Cells Urine Bacteria 08/05/18 08/05/18 08/06/18 21:06 23:58 05:08 WBC RBC Hgb Hct MCV MCH MCHC RDW Plt Count MPV Neut % (Auto) Lymph % (Auto) [place] % (Auto) Eos % (Auto) Baso % (Auto) Neut # (Auto) Lymph # (Auto) [place] # (Auto) Eos # (Auto) Baso # (Auto) ESR Sodium Potassium Chloride Carbon Dioxide Anion Gap BUN Creatinine Est GFR ( Amer) Est GFR (Non-Af Amer) POC Glucose (mg/dL) 108 94 Random Glucose Calcium Magnesium Total Bilirubin AST ALT Alkaline Phosphatase Total Creatine Kinase NT-Pro-B Natriuret Pep Total Protein Albumin Globulin Albumin/Globulin Ratio Triglycerides Cholesterol LDL Cholesterol Direct HDL Cholesterol Thyroxine (T4) TSH 3rd Generation Urine Color Straw Urine Clarity Clear Urine pH 8.0 Ur Specific [place] 1.006 Urine Protein Negative Urine Glucose (UA) Neg Urine Ketones Negative Urine Blood Negative Urine Nitrate Negative Urine Bilirubin Negative Urine Urobilinogen 0.2-1.0 Ur Leukocyte Esterase Trace Urine RBC (Auto) 1 Urine Microscopic WBC 12 H Ur Squamous Epith Cells < 1 Urine Bacteria Occ H 08/06/18 08/06/18 06:35 06:35 WBC 4.3 L RBC 3.53 L Hgb 11.2 L Hct 32.8 L MCV 92.7 MCH 31.7 H MCHC 34.2 RDW 13.4 Plt Count 170 MPV Neut % (Auto) Lymph % (Auto) [place] % (Auto) Eos % (Auto) Baso % (Auto) Neut # (Auto) Lymph # (Auto) [place] # (Auto) Eos # (Auto) Baso # (Auto) ESR Sodium 135 Potassium 3.3 L Chloride 96 L Carbon Dioxide 31 H Anion Gap 11 BUN 15 Creatinine 0.8 Est GFR ( Amer) > 60 Est GFR (Non-Af Amer) > 60 POC Glucose (mg/dL) Random Glucose 120 H Calcium 8.6 Magnesium 2.1 Total Bilirubin 0.5 AST 26 ALT 27 Alkaline Phosphatase 67 Total Creatine Kinase NT-Pro-B Natriuret Pep Total Protein 5.9 L Albumin 3.6 Globulin 2.3 Albumin/Globulin Ratio 1.6 Triglycerides 92 Cholesterol 118 LDL Cholesterol Direct 48 HDL Cholesterol 47 Thyroxine (T4) 6.02 TSH 3rd Generation 2.19 Urine Color Urine Clarity Urine pH Ur Specific [place] Urine Protein Urine Glucose (UA) Urine Ketones Urine Blood Urine Nitrate Urine Bilirubin Urine Urobilinogen Ur Leukocyte Esterase Urine RBC (Auto) Urine Microscopic WBC Ur Squamous Epith Cells Urine Bacteria - Impressions Impression: atient Name / ID : HOLLIS BERNAL Juan A / [id number] Exam Date : 08/06/2018 13:58:23 ( Approved ) Study Comment : Sex / Age : F / 72Y Creator : Kayden Leon MD Dictator : Kayden Leon MD Grinding Room Supervisor : Electrical Maintenance Technician : Kayden Leon MD Approver2 : Report Date : 08/06/2018 14:20:10 My Comment : PROCEDURE: Left Hip X-ray Radiographs. HISTORY: Intractable joint Pain. No history of recent/ related trauma provided. COMPARISON: None. TECHNIQUE: 2 views obtained. FINDINGS: BONES: Normal. No fracture. Satisfactory appearance of right JADA. JOINTS: Normal. SOFT TISSUES: Normal. OTHER FINDINGS: None. IMPRESSION: No significant or acute findings to account for/ related to the clinical presentation. Additional benign and/or incidental findings described above. atient Name / ID : HOLLIS BERNAL M / [id number] Exam Date : 08/05/2018 21:22:35 ( Approved ) Study Comment : Sex / Age : F / 72Y Creator : Andre Solitario MD Dictator : Andre Solitario MD Grinding Room Supervisor : Electrical Maintenance Technician : Andre Solitario MD Approver2 : Report Date : 08/06/2018 08:01:17 My Comment : PROCEDURE: Right Hip Radiographs. HISTORY: R hip pain COMPARISON: Right hip radiographs 08/05/2018. TECHNIQUE: 3 views obtained. FINDINGS: BONES: No interval change in right total replacement hardware deployment. No derangement of the hardware is identified at this time. No interval acute fracture or destructive bony lesion evident throughout the pelvic ring and proximal right femur. JOINTS: Dislocation/subluxation right hip joint. Moderate bilateral sacroiliac degenerative changes reiterated as well as the left hip joint. Pubic symphysis is intact swells remaining pubic bony anatomy iliac bones unremarkable as well as the majority the sacrum and left edil sacrum is somewhat obscured by overlying bowel. SOFT TISSUES: Normal. OTHER FINDINGS: None. IMPRESSION: Stable right total replacement as discussed above. No interval right hip derangement or fracture appreciable. Pelvic ring remains otherwise intact. atient Name / ID : HOLLIS BERNAL M / [id number] Exam Date : 08/05/2018 14:34:58 ( Approved ) Study Comment : Sex / Age : F 2Y Creator : Dictator : Jayla Mcbride MD Grinding Room Supervisor : Electrical Maintenance Technician : Jayla Mcbride MD Approver2 : Report Date : My Comment : Date of service: 08/05/2018 PROCEDURE: Bilateral lower extremity venous duplex Doppler. HISTORY: lower leg swelling and pain Left> Right COMPARISON: Right venous duplex Doppler from 03/21/2017. TECHNIQUE: Bilateral common femoral, superficial femoral, popliteal and posterior tibial veins were evaluated. Flow was assessed with color Doppler, compressibility, assessment of phasic flow and augmentation response. FINDINGS: COMMON FEMORAL VEIN: Right CFV: Unremarkable. Left CFV: Unremarkable. SUPERFICIAL FEMORAL VEIN: Right SFV: Unremarkable. Left SFV: Unremarkable. POPLITEAL VEIN: Right Popliteal: Unremarkable. Left Popliteal: Unremarkable. POSTERIOR TIBIAL VEIN: Right PTV: Unremarkable. Left PTV: Unremarkable. OTHER FINDINGS: None. IMPRESSION: No evidence of deep venous thrombosis. atient Name / ID : HOLLIS Velazco / [id number] Exam Date : 08/05/2018 13:47:19 ( Approved ) Study Comment : Sex / Age : F / 72Y Creator : yovanny tatum Dictator : Jayla Mcbride MD Grinding Room Supervisor : Electrical Maintenance Technician : Jayla Mcbride MD Approver2 : Report Date : 08/05/2018 14:43:03 My Comment : Date of service: 08/05/2018 PROCEDURE: Left Knee Radiographs. HISTORY: Pain. COMPARISON: None. TECHNIQUE: 3 views obtained. FINDINGS: BONES: Bone alignment and mineralization are normal. There is no acute displaced fracture or bone destruction. JOINTS: Normal. JOINT EFFUSION: There is a small suprapatellar joint effusion. OTHER FINDINGS: None. IMPRESSION: No acute displaced fracture or dislocation. atient Name / ID : HOLLIS Velazco / [id number] Exam Date : 08/05/2018 13:47:19 ( Approved ) Study Comment : Sex / Age : F / 72Y Creator : yovanny tatum Dictator : Jayla Mcbride MD Grinding Room Supervisor : Electrical Maintenance Technician : Jayla Mcbride MD Approver2 : Report Date : 08/05/2018 14:43:02 My Comment : PROCEDURE: Right Hip Radiographs. HISTORY: right hip pain COMPARISON: None. TECHNIQUE: 3 views obtained. FINDINGS: BONES: The pelvic ring is intact. There is diffuse bone demineralization. There is no acute displaced fracture or bone destruction. JOINTS: Status post right hip arthroplasty. No evidence for hardware complications. No dislocation. The left hip joint space is preserved. The sacroiliac joints are normal. There is mild osteitis pubis. SOFT TISSUES: Normal. OTHER FINDINGS: None. IMPRESSION: No acute displaced fracture or dislocation. Status post right hip arthroplasty, no hardware complications. atient Name / ID : HOLLIS BERNAL M / [id number] Exam Date : 08/05/2018 13:47:19 ( Approved ) Study Comment : Sex / Age : F / 72Y Creator : yovanny tatum Dictator : Jayla Mcbride MD Grinding Room Supervisor : Electrical Maintenance Technician : Jayla Mcbride MD Approver2 : Report Date : 08/05/2018 14:43:03 My Comment : Date of service: 08/05/2018 PROCEDURE: Right Knee Radiographs. HISTORY: knee pain atraumatic COMPARISON: None. TECHNIQUE: 3 views obtained. FINDINGS: BONES: Normal. No fracture. JOINTS: There is mild tricompartmental degenerative osteoarthrosis with reduced joint spaces, marginal osteophytes and tibial spiking, worse in the medial compartment. JOINT EFFUSION: None. OTHER FINDINGS: There is an ovoid calcification medial to the medial tibial plateau likely ligamentous calcification.. IMPRESSION: No acute fracture or dislocation. Mild tricompartmental degenerative osteoarthrosis, worse in the medial compartment. Assessment & Plan (1) Bilateral groin pain Assessment and Plan: xrays of hips are negative, good position of total hip replacement Mild knee DJD prior imaging reviewed. Patient has significant lumbar spine pathology, seen 11/2017, including L2 compression fracture with collapse (suspected old at that time), scoliosis that is significant at lumbar spine, L4/L5 disc disease noted on xrays of lumbar spine and visible on CT of abdomen pelvis. Patient was seen by spine/Dr. Pollard 11/2017 and at that time she was also complaining of groin pain, radicular pain. No spine intervention was indicated at that point. dopplers BLE negative for DVT unclear reason for LLE only edema arterial dopplers ordered Dr. Falk will get xrays of lumbar spine as well as CT of lumbar spine and compare to prior imaging No radiographic evidence of hip fracture, dislocation, explanation of pain on hip imaging mild knee DJD, minimally tender suspect lumbar radiculopathy Status: Acute (2) Intractable pain Status: Acute (3) Knee pain Status: Acute (4) Leg pain Status: Acute
--- NOTE | 2018-08-06 08:06 | RAD ---
PROCEDURE: Right Hip Radiographs. HISTORY: R hip pain COMPARISON: Right hip radiographs 08/05/2018. TECHNIQUE: 3 views obtained. FINDINGS: BONES: No interval change in right total replacement hardware deployment. No derangement of the hardware is identified at this time. No interval acute fracture or destructive bony lesion evident throughout the pelvic ring and proximal right femur. JOINTS: Dislocation/subluxation right hip joint. Moderate bilateral sacroiliac degenerative changes reiterated as well as the left hip joint. Pubic symphysis is intact swells remaining pubic bony anatomy iliac bones unremarkable as well as the majority the sacrum and left edil sacrum is somewhat obscured by overlying bowel. SOFT TISSUES: Normal. OTHER FINDINGS: None. IMPRESSION: Stable right total replacement as discussed above. No interval right hip derangement or fracture appreciable. Pelvic ring remains otherwise intact.
[2018-08-06] MEDS: Albuterol-Ipratrop 3 mg / 0.5 (3 ml) UD INH SCH ×3 (08:49→19:09)
[2018-08-06] MEDS ORDERED: Patient's Own Med (Losartan/Hydrochlorothiazide [Losartan-Hctz 100-12.5 Mg Tab] 1 TAB) PO SCH (09:00)
[2018-08-06] MEDS: Pantoprazole 40 mg EC Tab PO SCH (09:58)
[2018-08-06] MEDS ORDERED: Potassium Chloride 20 mEq ER Tab PO ONE (10:17)
--- NOTE | 2018-08-06 14:08 | CP.PCM.HP ---
History of Present Illness - History of Present Illness History of Present Illness: CC: Pain Multiple sides. 72 y/o F, with PMHx: R THR on 2017, HTN, DMII, O/A, Chronic back pain, Hypercholesterolemia, Asthma, Emphysema, Pt was brought to [facility] on 08/05/18, via EMS, to be evaluated for intractable R hip pain, described as constant, throbbing type, moderate intensity 5-6:10 that began x 2 weeks, gradua lly increased. Pt taking Oxycodone at home with no relief, also has associated pain to B/L groin, b/l knees, LLE with swelling and L calf pain Worsening symptoms: Irritability, chronic back pain 2nd to old Fx L2, age undetermined. Aggravated factor: Movements/exercise/ADL's. Pt denied: Fever, chills, n/v/d, abdominal pain, urinary symptoms, fall, trauma, CP, palpitation, syncope, SOB, cough, sick contact, recent travel out of [place]. EKG: Normal sinus rhythm. Rt Hip X-Ray: No acute displacement of dislocation. Lt knee X-Ray: No Fx or dislocation. Rt Knee X-Ray: No Fx or dislocation, degenerative Osteoarthritis. Ext U-S: No DVT. CXR: No active disease. Present on Admission - Present on Admission Any Indicators Present on Admission: No Review of Systems - Constitutional Constitutional: Weakness - EENT Eyes: Blurred Vision, Requires Corrective Lenses Ears: Other (negative) Nose/Mouth/Throat: Other (negative) - Cardiovascular Cardiovascular: Other (negtaive) - Respiratory Respiratory: Other (negative) - Gastrointestinal Gastrointestinal: Other (negative) - Genitourinary Genitourinary: Other (negative) - Musculoskeletal Musculoskeletal: Arthralgias, Back Pain, Radiating Pain into Limb - Integumentary Integumentary: Other (negative) - Neurological Neurological: Other (negative) - Psychiatric Psychiatric: Anxiety - Endocrine Endocrine: Other (negative) - Hematologic/Lymphatic Hematologic: Other (negtaive) Past Patient History - Infectious Disease Hx of Infectious Diseases: None - Past Medical History & Family History Past Medical History?: Yes Pertinent Family History: Unknown - Past Social History Smoking Status: Former Smoker Alcohol: None Drugs: Denies Home Situation {Lives}: Alone - CARDIAC Hx Cardiac Disorders: Yes Hx Hypercholesterolemia: Yes Hx Hypertension: Yes - PULMONARY Hx Respiratory Disorders: Yes Hx Asthma: Yes Hx Emphysema: Yes - NEUROLOGICAL Hx Neurological Disorder: No - HEENT Hx HEENT Problems: Yes Hx Cataracts: Yes (no surgery yet) - RENAL Hx Chronic Kidney Disease: No - ENDOCRINE/METABOLIC Hx Endocrine Disorders: Yes Hx Diabetes Mellitus Type 2: Yes Other/Comment: Diabetes - HEMATOLOGICAL/ONCOLOGICAL Hx Blood Disorders: No Hx Blood Transfusions: No - INTEGUMENTARY Hx Dermatological Problems: No - MUSCULOSKELETAL/RHEUMATOLOGICAL Hx Musculoskeletal Disorders: Yes Hx Back Pain: Yes Hx Falls: No Hx Fractures: Yes (L2) Hx Osteoarthritis: Yes - GASTROINTESTINAL Hx Gastrointestinal Disorders: Yes Hx Gastroesophageal Reflux: Yes - GENITOURINARY/GYNECOLOGICAL Hx Genitourinary Disorders: No - PSYCHIATRIC Hx Psychophysiologic Disorder: Yes Hx Anxiety: Yes Hx Substance Use: No - SURGICAL HISTORY Hx Surgeries: Yes Hx Cholecystectomy: Yes Hx Tonsillectomy: Yes - ANESTHESIA Hx Anesthesia: Yes Hx Anesthesia Reactions: No Hx Malignant Hyperthermia: No Meds Allergies/Adverse Reactions: Allergies Allergy/AdvReac Type Severity Reaction Status Date / Time moxifloxacin [From Avelox] Allergy RASH Verified 08/05/18 12:08 Penicillins Allergy RASH Verified 08/05/18 12:08 Physical Exam - Constitutional Appears: No Acute Distress - Head Exam Head Exam: NORMAL INSPECTION - Eye Exam Eye Exam: PERRL - ENT Exam ENT Exam: Normal Exam - Neck Exam Neck exam: Positive for: Normal Inspection - Respiratory Exam Respiratory Exam: Decreased Breath Sounds (at bases) - Cardiovascular Exam Cardiovascular Exam: REGULAR RHYTHM - GI/Abdominal Exam GI & Abdominal Exam: Normal Bowel Sounds, Soft - Extremities Exam Extremities exam: Positive for: tenderness (R Hip > L Hip. Tenderness L calf) Additional comments: Decreased ROM R hip, Edema LLE to above knee, - Back Exam Back exam: NORMAL INSPECTION - Neurological Exam Neurological exam: Alert, Oriented x3 Additional comments: No focal motor/sensory deficit. - Psychiatric Exam Psychiatric exam: Anxious - Skin Skin Exam: Normal Color, Warm Results - Vital Signs Recent Vital Signs: Last Vital Signs Temp 97.6 F 08/06/18 07:33 Pulse 68 08/06/18 09:58 Resp 18 08/06/18 07:33 BP 110/71 08/06/18 09:58 Pulse Ox 97 08/06/18 07:33 reviewed J.P. - Labs Result Diagrams: 08/06/18 06:35 08/06/18 06:35 Labs: Laboratory Results - last 24 hr 08/05/18 08/05/18 08/05/18 13:30 15:31 21:06 WBC RBC Hgb Hct MCV MCH MCHC RDW Plt Count ESR 16 Sodium Potassium Chloride Carbon Dioxide Anion Gap BUN Creatinine Est GFR ( Amer) Est GFR (Non-Af Amer) POC Glucose (mg/dL) 132 H 108 Random Glucose Calcium Magnesium Total Bilirubin AST ALT Alkaline Phosphatase Total Protein Albumin Globulin Albumin/Globulin Ratio Triglycerides Cholesterol LDL Cholesterol Direct HDL Cholesterol 25-OH Vitamin D Total Thyroxine (T4) TSH 3rd Generation Urine Color Urine Clarity Urine pH Ur Specific [place] Urine Protein Urine Glucose (UA) Urine Ketones Urine Blood Urine Nitrate Urine Bilirubin Urine Urobilinogen Ur Leukocyte Esterase Urine RBC (Auto) Urine Microscopic WBC Ur Squamous Epith Cells Urine Bacteria 08/05/18 08/06/18 08/06/18 23:58 05:08 06:35 WBC 4.3 L RBC 3.53 L Hgb 11.2 L Hct 32.8 L MCV 92.7 MCH 31.7 H MCHC 34.2 RDW 13.4 Plt Count 170 ESR Sodium Potassium Chloride Carbon Dioxide Anion Gap BUN Creatinine Est GFR ( Amer) Est GFR (Non-Af Amer) POC Glucose (mg/dL) 94 Random Glucose Calcium Magnesium Total Bilirubin AST ALT Alkaline Phosphatase Total Protein Albumin Globulin Albumin/Globulin Ratio Triglycerides Cholesterol LDL Cholesterol Direct HDL Cholesterol 25-OH Vitamin D Total Thyroxine (T4) TSH 3rd Generation Urine Color Straw Urine Clarity Clear Urine pH 8.0 Ur Specific [place] 1.006 Urine Protein Negative Urine Glucose (UA) Neg Urine Ketones Negative Urine Blood Negative Urine Nitrate Negative Urine Bilirubin Negative Urine Urobilinogen 0.2-1.0 Ur Leukocyte Esterase Trace Urine RBC (Auto) 1 Urine Microscopic WBC 12 H Ur Squamous Epith Cells < 1 Urine Bacteria Occ H 08/06/18 08/06/18 08/06/18 06:35 06:35 10:34 WBC RBC Hgb Hct MCV MCH MCHC RDW Plt Count ESR Sodium 135 Potassium 3.3 L Chloride 96 L Carbon Dioxide 31 H Anion Gap 11 BUN 15 Creatinine 0.8 Est GFR ( Amer) > 60 Est GFR (Non-Af Amer) > 60 POC Glucose (mg/dL) 114 H Random Glucose 120 H Calcium 8.6 Magnesium 2.1 Total Bilirubin 0.5 AST 26 ALT 27 Alkaline Phosphatase 67 Total Protein 5.9 L Albumin 3.6 Globulin 2.3 Albumin/Globulin Ratio 1.6 Triglycerides 92 Cholesterol 118 LDL Cholesterol Direct 48 HDL Cholesterol 47 25-OH Vitamin D Total 30.3 Thyroxine (T4) 6.02 TSH 3rd Generation 2.19 Urine Color Urine Clarity Urine pH Ur Specific [place] Urine Protein Urine Glucose (UA) Urine Ketones Urine Blood Urine Nitrate Urine Bilirubin Urine Urobilinogen Ur Leukocyte Esterase Urine RBC (Auto) Urine Microscopic WBC Ur Squamous Epith Cells Urine Bacteria reviewed J.P. - EKG Data EKG comments: reviewed J.P. - Imaging and Cardiology Venous US Status: Report reviewed by me (Karis.) Lt knee X-Ray Status: Report reviewed by me Rt Knee X-Ray Status: Report reviewed by me (AmritP.) Rt Hip X-Ray Status: Report reviewed by me (J.P.) Assessment & Plan (1) Acute right hip pain Status: Acute Priority: High (2) S/P hip replacement Assessment and Plan: Right Status: Chronic Comment: Right (3) Bilateral groin pain Status: Acute Priority: High (4) Pain of left lower extremity Status: Acute Priority: High (5) Low back pain Status: Chronic Priority: High (6) Hypertension Status: Chronic Priority: Medium (7) DMII (diabetes mellitus, type 2) Status: Chronic Priority: Medium (8) Anxiety Status: Chronic Priority: Medium (9) HLD (hyperlipidemia) Status: Chronic Priority: Medium (10) Asthma Status: Chronic - Assessment and Plan (Free Text) Plan: F/U Lumbar Spine X-Ray, Duplex L/E, L-Spine CT, U C-S, continue Morphine, Percocet, Xanax, Ecotrin 81 mg, Lasix, Duoneb, and rest of Tx. PT/OT eval, Orthopedic consult appreciated. Pain Management consult. - Date & Time Date: 08/06/18 Time: 12:30
--- NOTE | 2018-08-06 14:25 | RAD ---
PROCEDURE: Left Hip X-ray Radiographs. HISTORY: Intractable joint Pain. No history of recent/ related trauma provided. COMPARISON: None. TECHNIQUE: 2 views obtained. FINDINGS: BONES: Normal. No fracture. Satisfactory appearance of right JADA. JOINTS: Normal. SOFT TISSUES: Normal. OTHER FINDINGS: None. IMPRESSION: No significant or acute findings to account for/ related to the clinical presentation. Additional benign and/or incidental findings described above.
--- NOTE | 2018-08-06 14:25 | RAD ---
Date of service: 08/06/2018 HISTORY: Intractable joint pain. COMPARISON: 05/08/2014. TECHNIQUE: Chest PA and lateral views FINDINGS: LUNGS: No active pulmonary disease. PLEURA: No significant pleural effusion identified. No pneumothorax apparent. CARDIOVASCULAR: No aortic atherosclerotic calcification present. Normal cardiac size. No pulmonary vascular congestion. OSSEOUS STRUCTURES: No significant abnormalities. VISUALIZED UPPER ABDOMEN: Normal. OTHER FINDINGS: None. IMPRESSION: No active disease. No significant interval change compared to the prior examination(s).
--- NOTE | 2018-08-06 16:54 | US ---
Date of service: 08/06/2018 PROCEDURE: Duplex ultrasound of the bilateral lower extremity arteries. HISTORY: intractable joint pain COMPARISON: None available. TECHNIQUE: Grayscale and duplex Doppler evaluation of the bilateral common femoral, superficial femoral, popliteal, posterior tibial and dorsalis pedis arteries was performed.. FINDINGS: RIGHT LOWER EXTREMITY: RIGHT COMMON FEMORAL ARTERY: Widely patent. Maximal flow velocity of 132.4 cm/s. RIGHT SUPERFICIAL FEMORAL ARTERY: Widely patent. Maximal flow velocity of 78.0 cm/s. RIGHT POPLITEAL ARTERY:Widely patent. Maximal flow velocity of 74.1 cm/s. RIGHT POSTERIOR TIBIAL ARTERY: Widely patent. Maximal flow velocity of 55.1 cm/s. RIGHT DORSALIS PEDIS ARTERY: Widely patent. Maximal flow velocity of 39.4 cm/s. LEFT LOWER EXTREMITY: LEFT COMMON FEMORAL ARTERY: Widely patent. Maximal flow velocity of 111.8 cm/s. LEFT SUPERFICIAL FEMORAL ARTERY: Widely patent. Maximal flow velocity of 8.5 cm/s. LEFT POPLITEAL ARTERY:Widely patent. Maximal flow velocity of 56.9 cm/s. LEFT POSTERIOR TIBIAL ARTERY: Widely patent. Maximal flow velocity of 70.6 cm/s. LEFT DORSALIS PEDIS ARTERY: Widely patent. Maximal flow velocity of 36.5 cm/s. OTHER FINDINGS: None. IMPRESSION: Normal Duplex Doppler of the bilateral lower extremity arteries.
--- NOTE | 2018-08-06 18:35 | CARD ---
APPROVED REPORT Date of service: 08/06/2018 EKG Measurement Heart [id number] <Conclusion> Normal sinus rhythm Nonspecific T wave abnormality Abnormal ECG
[2018-08-07] MEDS: Albuterol-Ipratrop 3 mg / 0.5 (3 ml) UD INH SCH ×3 (08:08→19:22)
--- NOTE | 2018-08-07 08:38 | CP.PCM.CON ---
History of Present Illness - History of Present Illness History of Present Illness: Patient presents with recent onset of right hip and leg pain and has been referred for pain management. Patient had right THR in 2017, hardware is intact in good position. Apparently patient had been evaluated by ortho-spine for LBP but no definitive treatment was recommended. Today, patient is complaining of right hip pain that radiates down the right leg. There is some pain on the left side as well but not nearly as severe. She denied significant lower back pain to me this morning. At home Tramadol and Percocet 5/325mg weren't working. There were no precipitating events that led to the onset of current episode. Lumbar CT has been obtained. Past Patient History - Infectious Disease Hx of Infectious Diseases: None - Past Medical History & Family History Past Medical History?: Yes - Past Social History Smoking Status: Former Smoker Alcohol: None Drugs: Denies Home Situation {Lives}: Alone - CARDIAC Hx Cardiac Disorders: Yes Hx Hypercholesterolemia: Yes Hx Hypertension: Yes - PULMONARY Hx Respiratory Disorders: Yes Hx Asthma: Yes Hx Emphysema: Yes - NEUROLOGICAL Hx Neurological Disorder: No - HEENT Hx HEENT Problems: Yes Hx Cataracts: Yes (no surgery yet) - RENAL Hx Chronic Kidney Disease: No - ENDOCRINE/METABOLIC Hx Endocrine Disorders: Yes Hx Diabetes Mellitus Type 2: Yes Other/Comment: Diabetes - HEMATOLOGICAL/ONCOLOGICAL Hx Blood Disorders: No Hx Blood Transfusions: No - INTEGUMENTARY Hx Dermatological Problems: No - MUSCULOSKELETAL/RHEUMATOLOGICAL Hx Musculoskeletal Disorders: Yes Hx Back Pain: Yes Hx Falls: No Hx Fractures: Yes (L2) Hx Osteoarthritis: Yes - GASTROINTESTINAL Hx Gastrointestinal Disorders: Yes Hx Gastroesophageal Reflux: Yes - GENITOURINARY/GYNECOLOGICAL Hx Genitourinary Disorders: No - PSYCHIATRIC Hx Psychophysiologic Disorder: Yes Hx Anxiety: Yes Hx Substance Use: No - SURGICAL HISTORY Hx Surgeries: Yes Hx Cholecystectomy: Yes Hx Tonsillectomy: Yes - ANESTHESIA Hx Anesthesia: Yes Hx Anesthesia Reactions: No Hx Malignant Hyperthermia: No Meds Allergies/Adverse Reactions: Allergies Allergy/AdvReac Type Severity Reaction Status Date / Time moxifloxacin [From Avelox] Allergy RASH Verified 08/05/18 12:08 Penicillins Allergy RASH Verified 08/05/18 12:08 - Medications Medications: Current Medications Albuterol/Ipratropium (Duoneb 3 Mg/0.5 Mg (3 Ml) Ud) 3 ml INH RTID [facility] Last Admin: 08/07/18 08:08 Dose: 3 ml Alprazolam (Xanax) 0.5 mg PO QID PRN PRN Reason: Anxiety Last Admin: 08/06/18 16:15 Dose: 0.5 mg Aspirin (Ecotrin) 81 mg PO DAILY [facility] Last Admin: 08/06/18 09:58 Dose: 81 mg Atorvastatin Calcium (Lipitor) 40 mg PO HS [facility] Last Admin: 08/06/18 21:26 Dose: 40 mg Diphenhydramine HCl (Benadryl) 25 mg PO Q6 PRN PRN Reason: Allergy symptoms Last Admin: 08/06/18 23:15 Dose: 25 mg Donepezil HCl (Aricept) 10 mg PO HS [facility] Last Admin: 08/06/18 21:26 Dose: 10 mg Furosemide (Lasix) 20 mg PO DAILY [facility] Last Admin: 08/06/18 09:58 Dose: 20 mg Gabapentin (Neurontin) 300 mg PO HS [facility] Last Admin: 08/06/18 21:27 Dose: 300 mg Home Med (Quetiapine [Seroquel Xr]) 150 mg PO QPM [facility] Hydrochlorothiazide (Microzide) 12.5 mg PO DAILY [facility] Last Admin: 08/06/18 09:58 Dose: 12.5 mg Loratadine (Claritin) 10 mg PO DAILY [facility] Last Admin: 08/06/18 09:57 Dose: 10 mg Losartan Potassium (Cozaar) 100 mg PO DAILY [facility] Last Admin: 08/06/18 09:58 Dose: 100 mg Memantine (Namenda) 5 mg PO BID [facility] Last Admin: 08/06/18 16:12 Dose: 5 mg Pantoprazole Sodium (Protonix Ec Tab) 40 mg PO DAILY [facility] Last Admin: 08/06/18 09:58 Dose: 40 mg Polyethylene Glycol (Miralax) 17 gm PO DAILY PRN PRN Reason: Constipation Zolpidem Tartrate (Ambien) 5 mg PO HS PRN PRN Reason: Sleep Last Admin: 08/07/18 01:08 Dose: 5 mg Physical Exam - Extremities Exam Additional comments: TTP over right lateral hip. - Back Exam Additional comments: Mostly nontender. Results - Vital Signs Recent Vital Signs: Last Vital Signs Temp 97.8 F 08/07/18 08:21 Pulse 77 08/07/18 08:21 Resp 18 08/07/18 08:21 BP 121/83 08/07/18 08:21 Pulse Ox 94 L 08/07/18 08:21 - Labs Result Diagrams: 08/06/18 06:35 08/06/18 06:35 Labs: Laboratory Results - last 24 hr 08/06/18 08/06/18 08/06/18 06:35 10:34 16:27 POC Glucose (mg/dL) 114 H 122 H 25-OH Vitamin D Total 30.3 08/06/18 08/07/18 21:05 05:32 POC Glucose (mg/dL) 167 H 91 25-OH Vitamin D Total Assessment & Plan - Assessment and Plan (Free Text) Assessment: 72 yo woman w/ right hip pain and low back pain. Lumbar spondylosis appears chronic, L2 compression fracture appears chronic and neither is likely the cause of right hip tenderness on palpation. - trial of Oxycodone 10mg for pain, patient can be discharged on this medication - consider greater trochanter bursa injection, will defer to ortho - f/u lumbar CT
[2018-08-07] MEDS: Pantoprazole 40 mg EC Tab PO SCH (08:52)
--- NOTE | 2018-08-07 11:07 | CP.PCM.PN ---
Subjective - Date & Time of Evaluation Date of Evaluation: 08/07/18 Time of Evaluation: 11:02 - Subjective Subjective: Physicist [employer] at bedside Patient states that she is having severe pain in her right hip for three weeks, but says that she has been having this pain overall for months, but that is getting much worse and she lives alone. She had fall november 2017 but none since. She says the pain is in the same location but that it is getting worse. She says the pain is worse after getting the hip replacement. She denies any change in bowel but says she has some hesitiation over last 6 months urinating. She denies numbness or tinglingi and denies any weakness that she noticed. Review of Systems - Review of Systems All systems: reviewed and no additional remarkable complaints except - Neurological Neurological: As Per HPI - Hematologic/Lymphatic Hematologic: UNREMARKABLE Objective - Vital Signs/Intake and Output Vital Signs (last 24 hours): Temp Pulse Resp BP Pulse Ox 97.8 F 77 18 121/83 94 L 08/07/18 08:21 08/07/18 08:51 08/07/18 08:21 08/07/18 08:51 08/07/18 08:21 - Medications Medications: Current Medications Albuterol/Ipratropium (Duoneb 3 Mg/0.5 Mg (3 Ml) Ud) 3 ml INH RTID [facility] Last Admin: 08/07/18 08:08 Dose: 3 ml Alprazolam (Xanax) 0.5 mg PO QID PRN PRN Reason: Anxiety Last Admin: 08/06/18 16:15 Dose: 0.5 mg Aspirin (Ecotrin) 81 mg PO DAILY [facility] Last Admin: 08/07/18 08:52 Dose: 81 mg Atorvastatin Calcium (Lipitor) 40 mg PO HS [facility] Last Admin: 08/06/18 21:26 Dose: 40 mg Diphenhydramine HCl (Benadryl) 25 mg PO Q6 PRN PRN Reason: Allergy symptoms Last Admin: 08/06/18 23:15 Dose: 25 mg Donepezil HCl (Aricept) 10 mg PO HS [facility] Last Admin: 08/06/18 21:26 Dose: 10 mg Furosemide (Lasix) 20 mg PO DAILY [facility] Last Admin: 08/07/18 08:51 Dose: 20 mg Gabapentin (Neurontin) 300 mg PO HS [facility] Last Admin: 08/06/18 21:27 Dose: 300 mg Home Med (Quetiapine [Seroquel Xr]) 150 mg PO QPM [facility] Hydrochlorothiazide (Microzide) 12.5 mg PO DAILY [facility] Last Admin: 08/07/18 08:52 Dose: 12.5 mg Loratadine (Claritin) 10 mg PO DAILY [facility] Last Admin: 08/07/18 09:17 Dose: 10 mg Losartan Potassium (Cozaar) 100 mg PO DAILY [facility] Last Admin: 08/07/18 08:51 Dose: 100 mg Memantine (Namenda) 5 mg PO BID [facility] Last Admin: 08/07/18 08:50 Dose: 5 mg Oxycodone HCl (Oxycodone Immediate Release Tab) 10 mg PO Q6 PRN PRN Reason: Pain, severe (8-10) Pantoprazole Sodium (Protonix Ec Tab) 40 mg PO DAILY [facility] Last Admin: 08/07/18 08:52 Dose: 40 mg Polyethylene Glycol (Miralax) 17 gm PO DAILY PRN PRN Reason: Constipation Zolpidem Tartrate (Ambien) 5 mg PO HS PRN PRN Reason: Sleep Last Admin: 08/07/18 01:08 Dose: 5 mg - Labs Labs: 08/06/18 06:35 08/06/18 06:35 - Constitutional Appears: Well, No Acute Distress - Head Exam Head Exam: ATRAUMATIC - Neck Exam Neck Exam: Full ROM, Normal Inspection - Extremities Exam Additional comments: TTP over greater trochanter but also anterior thigh, anterior aspect of iliac crest as well sensation intact BLE +DP/PT pulses swelling to LLE improving, teds intact calves soft NT neg homans no pain with full AROM of B hips, improved from yesterday - Neurological Exam Neurological Exam: Alert, Awake, Oriented x3 Neuro motor strength exam: Left Lower Extremity: 5 (5/5 BLE great toe ext, DF/PF, knee flex/ext/ hip flexion (complains of pain with left ankle PF and right hip flexion)), Right Lower Extremity: 5 - Psychiatric Exam Psychiatric exam: Normal Affect, Normal Mood - Skin Skin Exam: Dry, Intact, Normal Color, Warm Assessment and Plan (1) Bilateral groin pain Status: Acute (2) Intractable pain Status: Deleted (3) Lumbar stenosis Assessment & Plan: awaiting official report of CT appears stable L2 fracture, maybe slightly more spinal stenosis from prior imaging, scoliosis, noted multilevel disc disease arterial duplex normal appears symptoms are radicular recommend PT/OT, spine consultation no orthopedic issues at this time (spine is outside scope of practice of Dr. Patten) f/u as outpatient for Dr. Patten Status: Acute
--- NOTE | 2018-08-07 12:45 | CT ---
Date of service: 08/06/2018 PROCEDURE: CT Lumbar Spine without contrast HISTORY: low back pain, groin pain COMPARISON: None available. TECHNIQUE: Axial computed tomography images were obtained of the lumbar spine without the use of intravenous contrast. Coronal and sagittal reformatted images were created and reviewed. Radiation dose: Total exam DLP = 560.58 mGy-cm. This CT exam was performed using one or more of the following dose reduction techniques: Automated exposure control, adjustment of the mA and/or kV according to patient size, and/or use of iterative reconstruction technique. FINDINGS: VERTEBRAE: There is a severe compression fracture of L2 DISCS/SPINAL CANAL/NEURAL FORAMINA: L1-2: There is a severe compression fracture of L2. There is destruction of the disc space with a vacuum disc. There is bony sclerosis. There is moderate central stenosis L2-3: There is severe disc degeneration at L2-3 with a vacuum disc and loss of disc height. No significant stenosis L3-4: There is severe disc degeneration with loss of disc height at L3-4. There is moderate central stenosis L4-5: Severe disc degeneration at L4-5 with a vacuum disc and bony sclerosis. There is moderate central canal stenosis L5-S1: Unremarkable. PARASPINAL SOFT TISSUES: There is curvature of the spine convex to the right. There is lateral subluxation of L4 over L5 OTHER FINDINGS: The report concurs with the preliminary [facility] report IMPRESSION: Severe multilevel degenerative changes as detailed above.
--- NOTE | 2018-08-07 15:42 | RAD ---
Date of service: 08/07/2018 PROCEDURE: Radiographs of the Lumbar Spine. HISTORY: back pain COMPARISON: 12/02/2017. TECHNIQUE: 5 views obtained. FINDINGS: BONES: Moderate dextroscoliotic deformity. Degenerative spondylolisthesis likely at L3-4, grade 1 L3 slightly posterior L4. DISC SPACES: Gross disc height loss is appreciate as well as osteophyte formation and endplate sclerosis throughout the lumbar spine sparing T12-L1 only. Variability is on the basis of scoliotic deformity at the various levels. A severe compression fracture of L2 is present, not significantly changed in the interval. Spondylolisthesis also stable at L 3 4. OTHER FINDINGS: None. IMPRESSION: Severe L2 vertebral body compression fracture on a chronic basis. Advanced multilevel degenerative disease with variability related to moderate scoliotic deformity as per above. No definitive new compression fracture appreciable.
--- NOTE | 2018-08-07 16:28 | CP.PCM.PN ---
Subjective - Date & Time of Evaluation Date of Evaluation: 08/07/18 Time of Evaluation: 13:10 - Subjective Subjective: F/U R hip pain. R Hip, R gluteal pain, no L-S pain Objective - Vital Signs/Intake and Output Vital Signs (last 24 hours): Temp Pulse Resp BP Pulse Ox 97.8 F 91 H 18 121/83 93 L 08/07/18 08:21 08/07/18 09:26 08/07/18 08:21 08/07/18 08:51 08/07/18 09:26 - Medications Medications: Current Medications Albuterol/Ipratropium (Duoneb 3 Mg/0.5 Mg (3 Ml) Ud) 3 ml INH RTID [facility] Last Admin: 08/07/18 13:52 Dose: 3 ml Alprazolam (Xanax) 0.5 mg PO QID PRN PRN Reason: Anxiety Last Admin: 08/06/18 16:15 Dose: 0.5 mg Aspirin (Ecotrin) 81 mg PO DAILY [facility] Last Admin: 08/07/18 08:52 Dose: 81 mg Atorvastatin Calcium (Lipitor) 40 mg PO HS [facility] Last Admin: 08/06/18 21:26 Dose: 40 mg Diphenhydramine HCl (Benadryl) 25 mg PO Q6 PRN PRN Reason: Allergy symptoms Last Admin: 08/06/18 23:15 Dose: 25 mg Donepezil HCl (Aricept) 10 mg PO HS [facility] Last Admin: 08/06/18 21:26 Dose: 10 mg Furosemide (Lasix) 20 mg PO DAILY [facility] Last Admin: 08/07/18 08:51 Dose: 20 mg Gabapentin (Neurontin) 300 mg PO HS [facility] Last Admin: 08/06/18 21:27 Dose: 300 mg Hydrochlorothiazide (Microzide) 12.5 mg PO DAILY [facility] Last Admin: 08/07/18 08:52 Dose: 12.5 mg Loratadine (Claritin) 10 mg PO DAILY [facility] Last Admin: 08/07/18 09:17 Dose: 10 mg Losartan Potassium (Cozaar) 100 mg PO DAILY [facility] Last Admin: 08/07/18 08:51 Dose: 100 mg Memantine (Namenda) 5 mg PO BID [facility] Last Admin: 08/07/18 08:50 Dose: 5 mg Oxycodone HCl (Oxycodone Immediate Release Tab) 10 mg PO Q6 PRN PRN Reason: Pain, severe (8-10) Pantoprazole Sodium (Protonix Ec Tab) 40 mg PO DAILY [facility] Last Admin: 08/07/18 08:52 Dose: 40 mg Polyethylene Glycol (Miralax) 17 gm PO DAILY PRN PRN Reason: Constipation Quetiapine Fumarate (Seroquel) 150 mg PO QPM [facility] Zolpidem Tartrate (Ambien) 5 mg PO HS PRN PRN Reason: Sleep Last Admin: 08/07/18 01:08 Dose: 5 mg - Labs Labs: 08/06/18 06:35 08/06/18 06:35 - Constitutional Appears: No Acute Distress - Head Exam Head Exam: NORMAL INSPECTION - Eye Exam Eye Exam: PERRL - ENT Exam ENT Exam: Normal Exam - Neck Exam Neck Exam: Normal Inspection - Respiratory Exam Respiratory Exam: Decreased Breath Sounds (at bases) - Cardiovascular Exam Cardiovascular Exam: REGULAR RHYTHM - GI/Abdominal Exam GI & Abdominal Exam: Soft, Normal Bowel Sounds - Extremities Exam Additional comments: Decreased ROM R hip, tenderness R Hip R gluteal, , mild tenderness L Hip, L calf - Back Exam Back Exam: absent: tenderness - Neurological Exam Neurological Exam: Alert, Oriented x3 Additional comments: No focal motor/sensory deficit, limited movement RLE due to tenderness R Hip - Psychiatric Exam Psychiatric exam: Anxious - Skin Skin Exam: Warm Assessment and Plan (1) Acute right hip pain Status: Acute (2) S/P hip replacement Status: Chronic (3) Bilateral groin pain Status: Acute (4) Pain of left lower extremity Status: Acute (5) Low back pain Status: Chronic (6) Hypertension Status: Chronic (7) DMII (diabetes mellitus, type 2) Status: Chronic (8) Anxiety Status: Chronic (9) HLD (hyperlipidemia) Status: Chronic (10) Asthma Status: Chronic (11) L2 vertebral fracture Assessment & Plan: chronic, old Status: Acute - Assessment and Plan (Free Text) Plan: CT L-S compression Fx, canal stenosis, L1 to L4 multiple degenerative changes, f/u MRI L-S Spine and Spine Orthopedic consult, , Pain management cnsult apreciated, Oxycoone, PT, Orthopedic f/u for R Hip Fx , PT , f/u out patient
[2018-08-07] MEDS: oxyCODONE 10 mg Immediate Release Tab PO PRN ×2 (16:34→23:10)
[2018-08-08] MEDS: Albuterol-Ipratrop 3 mg / 0.5 (3 ml) UD INH SCH ×3 (07:38→19:12)
[2018-08-08] MEDS: Pantoprazole 40 mg EC Tab PO SCH (08:45)
[2018-08-08] MEDS: oxyCODONE 10 mg Immediate Release Tab PO PRN ×2 (12:38→21:44)
--- NOTE | 2018-08-08 17:13 | CP.PCM.PN ---
Subjective - Date & Time of Evaluation Date of Evaluation: 08/08/18 Time of Evaluation: 15:40 - Subjective Subjective: R Hip pain. R hip and R gluteal pain. Objective - Vital Signs/Intake and Output Vital Signs (last 24 hours): Temp Pulse Resp BP Pulse Ox 97.8 F 92 H 18 101/67 98 08/08/18 16:59 08/08/18 16:59 08/08/18 16:59 08/08/18 16:59 08/08/18 16:59 - Medications Medications: Current Medications Albuterol/Ipratropium (Duoneb 3 Mg/0.5 Mg (3 Ml) Ud) 3 ml INH RTID [facility] Last Admin: 08/08/18 14:30 Dose: 3 ml Alprazolam (Xanax) 0.5 mg PO QID PRN PRN Reason: Anxiety Last Admin: 08/08/18 14:26 Dose: 0.5 mg Aspirin (Ecotrin) 81 mg PO DAILY [facility] Last Admin: 08/08/18 08:45 Dose: 81 mg Atorvastatin Calcium (Lipitor) 40 mg PO HS [facility] Last Admin: 08/07/18 21:30 Dose: 40 mg Diphenhydramine HCl (Benadryl) 25 mg PO Q6 PRN PRN Reason: Allergy symptoms Last Admin: 08/06/18 23:15 Dose: 25 mg Donepezil HCl (Aricept) 10 mg PO HS [facility] Last Admin: 08/07/18 21:30 Dose: 10 mg Furosemide (Lasix) 20 mg PO DAILY [facility] Last Admin: 08/08/18 08:45 Dose: 20 mg Gabapentin (Neurontin) 300 mg PO HS [facility] Last Admin: 08/07/18 21:29 Dose: 300 mg Hydrochlorothiazide (Microzide) 12.5 mg PO DAILY [facility] Last Admin: 08/08/18 08:45 Dose: 12.5 mg Loratadine (Claritin) 10 mg PO DAILY [facility] Last Admin: 08/08/18 08:43 Dose: 10 mg Losartan Potassium (Cozaar) 100 mg PO DAILY [facility] Last Admin: 08/08/18 08:44 Dose: 100 mg Memantine (Namenda) 5 mg PO BID [facility] Last Admin: 08/08/18 17:01 Dose: 5 mg Oxycodone HCl (Oxycodone Immediate Release Tab) 10 mg PO Q6 PRN PRN Reason: Pain, severe (8-10) Last Admin: 08/08/18 12:38 Dose: 10 mg Pantoprazole Sodium (Protonix Ec Tab) 40 mg PO DAILY [facility] Last Admin: 08/08/18 08:45 Dose: 40 mg Polyethylene Glycol (Miralax) 17 gm PO DAILY PRN PRN Reason: Constipation Quetiapine Fumarate (Seroquel) 150 mg PO QPM [facility] Last Admin: 08/08/18 17:02 Dose: 150 mg Zolpidem Tartrate (Ambien) 5 mg PO HS PRN PRN Reason: Sleep Last Admin: 08/08/18 00:12 Dose: 5 mg - Labs Labs: 08/06/18 06:35 08/06/18 06:35 - Constitutional Appears: No Acute Distress - Head Exam Head Exam: NORMAL INSPECTION - Eye Exam Eye Exam: PERRL - ENT Exam ENT Exam: Normal Exam - Neck Exam Neck Exam: Normal Inspection - Respiratory Exam Respiratory Exam: Decreased Breath Sounds (at bases) - Cardiovascular Exam Cardiovascular Exam: REGULAR RHYTHM - GI/Abdominal Exam GI & Abdominal Exam: Soft, Normal Bowel Sounds - Extremities Exam Extremities Exam: Tenderness (R hip > L hip. Tenderness L calf) Additional comments: ROM decreased R hip, edema LLE to above knee - Back Exam Back Exam: NORMAL INSPECTION - Neurological Exam Neurological Exam: Alert, Oriented x3 Additional comments: No focal motor/sensory deficit. - Psychiatric Exam Psychiatric exam: Anxious - Skin Skin Exam: Warm Assessment and Plan (1) Acute right hip pain Status: Acute (2) S/P hip replacement Status: Chronic (3) Bilateral groin pain Status: Acute (4) Pain of left lower extremity Status: Acute (5) Low back pain Status: Chronic (6) Hypertension Status: Chronic (7) DMII (diabetes mellitus, type 2) Status: Chronic (8) Anxiety Status: Chronic (9) HLD (hyperlipidemia) Status: Chronic (10) Asthma Status: Chronic (11) L2 vertebral fracture Status: Acute - Assessment and Plan (Free Text) Plan: Continue Oxycodone, Neurontin, Xeroquel, Namenda and rest of Tx.
--- NOTE | 2018-08-08 18:19 | MRI ---
Date of service: 08/07/2018 PROCEDURE: MR LUMBAR SPINE WITHOUT CONTRAST HISTORY: Back pain COMPARISON: Comparison made with prior CT scan of the lumbar spine 08/06/2018. TECHNIQUE: Multiecho multiplanar sequences were performed through the lumbar spine without the use of intravenous contrast. FINDINGS: Chronic appearing anterior wedge compression fracture of the L2 segment with near vertebral plana of the remaining anterior segment. There also appear to be chronic appearing cystic endplate changes and sclerosis involving the right lateral border of the L1 segment present as well. Vacuum phenomena within the disc space margins poorly delineated though seen to better advantage on prior CT scan There is retropulsion of the posterior superior corner of the L2 segment associated with asymmetric disc herniation component. These changes result in irregular compressive effects on the ventral surface of the thecal sac. Facets are hypertrophic at this level as well. Significant right and mild left exit foraminal stenosis. At the L2-L3 level there is disc desiccation and mild posterior disc space narrowing. Small amount of vacuum phenomena also poorly seen compared to prior CT scan. There is small broad-based asymmetric disc bulge larger on the right than left which results in some mild flattening of the ventral surface of the thecal sac however the overall central canal appears adequate. Facets are hypertrophic. Exit foramina are adequate. At the L3-L4 level, disc desiccation, disc space narrowing and cortical endplate irregularity. Small asymmetric disc ridge complex extends into the proximal inferior margin left exit foramen. The facet joints are hypertrophic left greater than right. Central canal appears adequate. Exit foramina mildly narrowed the left and adequate on the right. L4-L5 level, there is disc desiccation and disc space narrowing with cortical endplate irregularity. Small broad-based disc bulge ridge complex extends into the proximal inferior margins of both exit foramina. Facets are quite hypertrophic and flavum buckled. There is resultant bilateral lateral recess as well as central canal stenosis. There is significant left and mild right exit foraminal narrowing. At the L5-S1 level, there is mild to moderate age related disc desiccation and minor posterior disc space narrowing. Minor broad-based disc bulge ridge complex. Facets are hypertrophic. Central canal appears adequate. Exit foramina are stenotic on the right and adequate on the left. Conus appears to terminate at the lower L2 level. OTHER FINDINGS: None. IMPRESSION: No acute compression fractures. Chronic compression deformity L2 segment with degenerative subchondral cystic endplate changes and cortical irregularity right inferolateral L1 endplate. Mild retropulsion posterior superior corner of the L2 segment along with irregular disc bulge arising from the L1-L2 disc space level result in compressive effects on the ventral surface of the thecal sac. Multilevel degenerative spondylosis seen at the remaining levels most significantly affecting the L4-L5 disc space level as well.. Variable bilateral foraminal stenosis
[2018-08-09] MEDS ORDERED: Albuterol-Ipratrop 3 mg / 0.5 (3 ml) UD INH ONE (02:52)
[2018-08-09] MEDS: Albuterol-Ipratrop 3 mg / 0.5 (3 ml) UD INH SCH ×3 (07:11→18:59)
[2018-08-09] MEDS: Pantoprazole 40 mg EC Tab PO SCH (08:51)
[2018-08-09] MEDS: oxyCODONE 10 mg Immediate Release Tab PO PRN (14:44)
--- NOTE | 2018-08-09 17:35 | CP.PCM.PN ---
Subjective - Date & Time of Evaluation Date of Evaluation: 08/09/18 Time of Evaluation: 13:40 - Subjective Subjective: F/U R hip pain Less pain in R hip. Objective - Vital Signs/Intake and Output Vital Signs (last 24 hours): Temp Pulse Resp BP Pulse Ox 98 F 95 H 20 99/64 L 95 08/09/18 16:08 08/09/18 16:08 08/09/18 16:08 08/09/18 16:08 08/09/18 16:08 - Medications Medications: Current Medications Albuterol/Ipratropium (Duoneb 3 Mg/0.5 Mg (3 Ml) Ud) 3 ml INH RTID [facility] Last Admin: 08/09/18 12:59 Dose: 3 ml Alprazolam (Xanax) 0.5 mg PO QID PRN PRN Reason: Anxiety Last Admin: 08/08/18 14:26 Dose: 0.5 mg Aspirin (Ecotrin) 81 mg PO DAILY [facility] Last Admin: 08/09/18 08:51 Dose: 81 mg Atorvastatin Calcium (Lipitor) 40 mg PO HS [facility] Last Admin: 08/08/18 21:42 Dose: 40 mg Diphenhydramine HCl (Benadryl) 25 mg PO Q6 PRN PRN Reason: Allergy symptoms Last Admin: 08/09/18 17:02 Dose: 25 mg Donepezil HCl (Aricept) 10 mg PO HS [facility] Last Admin: 08/08/18 21:42 Dose: 10 mg Furosemide (Lasix) 20 mg PO DAILY [facility] Last Admin: 08/09/18 08:52 Dose: 20 mg Gabapentin (Neurontin) 300 mg PO HS [facility] Last Admin: 08/08/18 21:42 Dose: 300 mg Hydrochlorothiazide (Microzide) 12.5 mg PO DAILY [facility] Last Admin: 08/09/18 08:51 Dose: 12.5 mg Loratadine (Claritin) 10 mg PO DAILY [facility] Last Admin: 08/09/18 08:52 Dose: 10 mg Losartan Potassium (Cozaar) 100 mg PO DAILY [facility] Last Admin: 08/09/18 08:51 Dose: 100 mg Memantine (Namenda) 5 mg PO BID [facility] Last Admin: 08/09/18 17:03 Dose: 5 mg Oxycodone HCl (Oxycodone Immediate Release Tab) 10 mg PO Q6 PRN PRN Reason: Pain, severe (8-10) Last Admin: 08/09/18 14:44 Dose: 10 mg Pantoprazole Sodium (Protonix Ec Tab) 40 mg PO DAILY [facility] Last Admin: 08/09/18 08:51 Dose: 40 mg Polyethylene Glycol (Miralax) 17 gm PO DAILY PRN PRN Reason: Constipation Quetiapine Fumarate (Seroquel) 150 mg PO QPM [facility] Last Admin: 08/08/18 17:02 Dose: 150 mg Zolpidem Tartrate (Ambien) 5 mg PO HS PRN PRN Reason: Sleep Last Admin: 08/08/18 23:01 Dose: 5 mg - Labs Labs: 08/06/18 06:35 08/06/18 06:35 - Constitutional Appears: No Acute Distress - Head Exam Head Exam: NORMAL INSPECTION - Eye Exam Eye Exam: PERRL - ENT Exam ENT Exam: Normal Exam - Neck Exam Neck Exam: Normal Inspection - Respiratory Exam Respiratory Exam: Decreased Breath Sounds (at bases) - Cardiovascular Exam Cardiovascular Exam: REGULAR RHYTHM - GI/Abdominal Exam GI & Abdominal Exam: Soft, Normal Bowel Sounds - Extremities Exam Extremities Exam: Tenderness (R hip > L hip, tenderness L calf) Additional comments: DecreasedROM R hip. Edema LLE to above knee - Back Exam Back Exam: NORMAL INSPECTION - Neurological Exam Neurological Exam: Alert, Oriented x3 Additional comments: No focal motor/sensory deficit - Psychiatric Exam Psychiatric exam: Anxious - Skin Skin Exam: Normal Color, Warm Assessment and Plan (1) Acute right hip pain Status: Acute (2) S/P hip replacement Status: Chronic (3) Bilateral groin pain Status: Acute (4) Pain of left lower extremity Status: Acute (5) Low back pain Status: Chronic (6) Hypertension Status: Chronic (7) DMII (diabetes mellitus, type 2) Status: Chronic (8) Anxiety Status: Chronic (9) HLD (hyperlipidemia) Status: Chronic (10) Asthma Status: Chronic (11) L2 vertebral fracture Status: Acute - Assessment and Plan (Free Text) Plan: Continue Oxycodone and rest of Tx.
[2018-08-10] MEDS: Albuterol-Ipratrop 3 mg / 0.5 (3 ml) UD INH SCH ×2 (07:38→13:13)
[2018-08-10 08:02] VITALS: O2SAT 97
[2018-08-10] MEDS: Pantoprazole 40 mg EC Tab PO SCH (08:15)
--- NOTE | 2018-08-10 11:59 | CON ---
DATE: 08/08/2018 REASON FOR CONSULTATION: Intractable low back pain. HISTORY OF PRESENT ILLNESS: The patient is a 72-year-old female who states that she had pain in her lower back for past several months. She states however the worst pain is directly over her right hip. She had a total hip replacement done two years ago. She states it felt better for about a year, but the last year, it has gotten progressively more painful. She denies any recent trauma. She was brought to the hospital three days ago because of the pain. She was taking oxycodone at home, which was not helping her at all. She also noted some groin pain as well as swelling of her left lower extremity with calf pain. PAST MEDICAL HISTORY: Significant for diabetes type 2 along with hypertension, osteoarthritis, hypercholesterolemia, asthma, and emphysema. MEDICATIONS: As listed on the chart. ALLERGIES: SHE IS ALLERGIC TO FEW ANTIBIOTICS, PENICILLINS, AND MOXIFLOXACIN WHICH GIVES HER RASHES. PAST SURGICAL HISTORY: Significant for the hip replacement as mentioned. SOCIAL HISTORY: She states she is a former smoker and denies taking alcohol or drugs now outside of her prescriptions. PHYSICAL EXAMINATION: On examination, she has no tenderness to palpation throughout the mid lumbar spine. She has some tenderness in the lumbosacral region. She is exquisitely tender over the greater trochanter of her right femur. She has some pain into the groin, but really it is exquisitely tender to touch and that is where she says her main pain is. IMAGING: Radiologic studies were reviewed. She has a right total hip replacement. Appears to be some calcifications around the greater trochanter of the hip, but otherwise the hardware appears to be stable. The MRI done of her lumbar spine demonstrates what appears to be an old fracture of L2. Almost all of the L2 body certainly anteriorly is gone with just a thin rim posteriorly. The L1 body is really just kind of sunk into that. She has a right lumbar scoliosis. She has some areas of stenosis, but again difficult to evaluate given the scoliosis. She has significant degenerative disk changes at L3-L4 and L4-L5 and somewhat at L5-S1. Little bit of a grade 1 spondylolisthesis of L4 on L5. IMPRESSION: A fracture of L2 that appears to be old on the studies. Again, one might consider an epidural cortisone injection being mindful of her diabetes for her lower back pain, but she is exquisitely tender over the greater trochanter of her right hip, and I agree with Dr. Lilly's consultation that trochanteric injection and therapy of that area would be the first line of treatment at this point. There is no evidence that the point tenderness of her trochanter is anywhere related to her spinal arthritis. Thank you for allowing me to participate in the care of your patient. Edvin Pollard MD [facility]
[2018-08-10 12:12] LABS: HEMOGLOBIN 12.8 g/dL (12.0-16.0); MEAN CORPUSCULAR HEMOGLOBIN 31.3 pg (27.0-31.0); MEAN CORPUSCULAR HGB CONC 33.3 g/dL (33.0-37.0); RBC 4.08 Mil/uL (3.80-5.20); RED CELL DISTRIBUTION WIDTH 13.6 % (11.5-14.5); WHITE BLOOD COUNT 6.3 K/uL (4.8-10.8)
[2018-08-10 12:46] LABS: BLOOD UREA NITROGEN 29 mg/dl (7-17); CALCIUM 9.1 mg/dL (8.4-10.2); GFR NON-AFRICAN AMERICAN 55
[2018-08-10 14:12] VITALS: BP 116/69; PULSE 94; RESP 18; TEMP 97.8
--- NOTE | 2018-08-10 14:20 | CP.PCM.PCO ---
Assessment/Plan - Assessment/Plan Assessment (Free Text): Pt stable, seen and cleared for d/c by all consultants. Per ortho, no trochanter bursa injection at this time, pt to continue pain meds, outpt f/u with Dr. Patten. Pain Rx faxed to pt's pharmacy by Dr. Polanco's office. Pt cleared by Dr. Polanco for d/c home. Rx Macrobid sent to pt's pharm
--- NOTE | 2018-08-10 14:21 | CP.PCM.DIS ---
Provider - Provider Date of Admission: 08/05/18 15:27 Attending physician: Mumtaz Polanco MD Consults: 08/05/18 15:28 Anesthesiology Consult Stat Comment: Consulting Provider: Jaswinder Lilly Consulting Physician: Jaswinder Lilly Reason for Consult: intractable joint pain 08/05/18 20:11 Orthopedic Consult Routine Comment: Consulting Provider: Lata Patten Consulting Physician: Lata Patten Reason for Consult: R Hip pain 08/07/18 12:20 Neuro Surgery Consult Routine Comment: Consulting Provider: Eugenio Jimenez Consulting Physician: Eugenio Jimenez Reason for Consult: Back pain, lumbar stenosis Diagnosis - Discharge Diagnosis (1) Acute right hip pain Status: Acute Priority: High (2) S/P hip replacement Status: Chronic (3) Bilateral groin pain Status: Acute Priority: High (4) Pain of left lower extremity Status: Acute Priority: High (5) Low back pain Status: Chronic Priority: High (6) Hypertension Status: Chronic Priority: Medium (7) DMII (diabetes mellitus, type 2) Status: Chronic Priority: Medium (8) Anxiety Status: Chronic Priority: Medium (9) HLD (hyperlipidemia) Status: Chronic Priority: Medium (10) Asthma Status: Chronic (11) L2 vertebral fracture Status: Acute Hospital Course - Lab Results Lab Results: Micro Results 08/06/18 21:08 Urine,Clean Catch Urine Culture - Final Escherichia Coli Most Recent Lab Values WBC 6.3 K/uL (4.8-10.8) 08/10/18 11:50 RBC 4.08 Mil/uL (3.80-5.20) 08/10/18 11:50 Hgb 12.8 g/dL (12.0-16.0) 08/10/18 11:50 Hct 38.3 % (34.0-47.0) 08/10/18 11:50 MCV 94.0 fl (81.0-99.0) 08/10/18 11:50 MCH 31.3 pg (27.0-31.0) H 08/10/18 11:50 MCHC 33.3 g/dL (33.0-37.0) 08/10/18 11:50 RDW 13.6 % (11.5-14.5) 08/10/18 11:50 Plt Count 187 K/uL (130-400) 08/10/18 11:50 MPV 8.3 fl (7.2-11.7) 08/05/18 13:30 Neut % (Auto) 64.0 % (50.0-75.0) 08/05/18 13:30 Lymph % (Auto) 19.0 % (20.0-40.0) L 08/05/18 13:30 [place] % (Auto) 10.1 % (0.0-10.0) H 08/05/18 13:30 Eos % (Auto) 6.3 % (0.0-4.0) H 08/05/18 13:30 Baso % (Auto) 0.6 % (0.0-2.0) 08/05/18 13:30 Neut # (Auto) 3.7 K/uL (1.8-7.0) 08/05/18 13:30 Lymph # (Auto) 1.1 K/uL (1.0-4.3) 08/05/18 13:30 [place] # (Auto) 0.6 K/uL (0.0-0.8) 08/05/18 13:30 Eos # (Auto) 0.4 K/uL (0.0-0.7) 08/05/18 13:30 Baso # (Auto) 0.0 K/uL (0.0-0.2) 08/05/18 13:30 ESR 16 mm/hr (0-30) 08/05/18 13:30 Sodium 133 mmol/l (132-148) 08/10/18 11:50 Potassium 3.6 MMOL/L (3.6-5.0) 08/10/18 11:50 Chloride 93 mmol/L (98-107) L 08/10/18 11:50 Carbon Dioxide 29 mmol/L (22-30) 08/10/18 11:50 Anion Gap 15 (10-20) 08/10/18 11:50 BUN 29 mg/dl (7-17) H 08/10/18 11:50 Creatinine 1.0 mg/dl (0.7-1.2) 08/10/18 11:50 Est GFR ( Amer) > 60 08/10/18 11:50 Est GFR (Non-Af Amer) 55 08/10/18 11:50 POC Glucose (mg/dL) 176 mg/dL (65-110) H 08/10/18 13:51 Random Glucose 105 mg/dL (65-105) 08/10/18 11:50 Calcium 9.1 mg/dL (8.4-10.2) 08/10/18 11:50 Magnesium 2.1 MG/DL (1.6-2.3) 08/06/18 06:35 Total Bilirubin 0.5 mg/dl (0.2-1.3) 08/06/18 06:35 AST 26 U/L (14-36) 08/06/18 06:35 ALT 27 U/L (9-52) 08/06/18 06:35 Alkaline Phosphatase 67 U/L (38-126) 08/06/18 06:35 Total Creatine Kinase 183 U/L (30-135) H 08/05/18 13:30 NT-Pro-B Natriuret Pep 382 pg/ml (0-900) 08/05/18 13:30 Total Protein 5.9 G/DL (6.3-8.2) L 08/06/18 06:35 Albumin 3.6 g/dL (3.5-5.0) 08/06/18 06:35 Globulin 2.3 gm/dL (2.2-3.9) 08/06/18 06:35 Albumin/Globulin Ratio 1.6 (1.0-2.1) 08/06/18 06:35 Triglycerides 92 mg/DL (0-149) 08/06/18 06:35 Cholesterol 118 mg/dL (0-199) 08/06/18 06:35 LDL Cholesterol Direct 48 mg/dL (0-129) 08/06/18 06:35 HDL Cholesterol 47 MG/DL (30-70) 08/06/18 06:35 25-OH Vitamin D Total 30.3 NG/ML (30.0-100.0) 08/06/18 06:35 Thyroxine (T4) 6.02 ug/dl (5.5-11.0) 08/06/18 06:35 TSH 3rd Generation 2.19 mIU/ML (0.46-4.68) 08/06/18 06:35 Urine Color Straw (YELLOW) 08/05/18 23:58 Urine Clarity Clear (Clear) 08/05/18 23:58 Urine pH 8.0 (5.0-8.0) 08/05/18 23:58 Ur Specific [place] 1.006 (1.003-1.030) 08/05/18 23:58 Urine Protein Negative mg/dL (NEGATIVE) 08/05/18 23:58 Urine Glucose (UA) Neg mg/dL (NEGATIVE) 08/05/18 23:58 Urine Ketones Negative mg/dL (NEGATIVE) 08/05/18 23:58 Urine Blood Negative (NEGATIVE) 08/05/18 23:58 Urine Nitrate Negative (NEGATIVE) 08/05/18 23:58 Urine Bilirubin Negative (NEGATIVE) 08/05/18 23:58 Urine Urobilinogen 0.2-1.0 mg/dL (0.2-1.0) 08/05/18 23:58 Ur Leukocyte Esterase Trace Francesca/uL (Negative) 08/05/18 23:58 Urine RBC (Auto) 1 /hpf (0-3) 08/05/18 23:58 Urine Microscopic WBC 12 /hpf (0-5) H 08/05/18 23:58 Ur Squamous Epith Cells < 1 /hpf (0-5) 08/05/18 23:58 Urine Bacteria Occ (<OCC) H 08/05/18 23:58 Discharge Exam - Head Exam Head Exam: ATRAUMATIC Discharge Plan - Discharge Medications Prescriptions: Nitrofurantoin Macrocrystal [Macrodantin] 100 mg PO BID #20 capsule - Follow Up Plan Condition: FAIR Disposition: HOME/ ROUTINE Instructions: Chronic Knee Pain (DC), Knee Pain (DC) Additional Instructions: hacer pietro con dr cortez dentderrell de 1 semana Referrals: Eugenio Jimenez MD [Staff Provider] - Lata Patten MD [Staff Provider] - Jaswinder Lilly MD [Staff Provider] - Mumtaz Polanco MD [Staff Provider] -
[2018-08-10] MEDS: oxyCODONE 10 mg Immediate Release Tab PO PRN (15:08)
--- NOTE | 2018-08-12 12:06 | PQF ---
PROVIDER RESPONSE TEXT: S/p right hip replacement Lumbar scoliosis Lumbar degenerative disc disease. REVIEWER QUERY TEXT: Symptom Underlying Cause Please document the underlying diagnosis causing the patient?s documented symptom of acute right hip pain if known. The patient's Clinical Indicators include: xx Query created by: Ivett Ivey on 08/11/2018 11:58 AM Electronically signed by: Mumtaz Polanco MD 08/12/2018 12:03 PM
== END 2018-08-10 16:15 | disposition home or self-care (01) | DRG 552 ==
LOC: H.ER 11:59 → OBSVTOIN 15:27 → H.ERHOLD 15:27 → H.MEDSURG1 18:15
PROVIDERS: ADMIT Internal Medicine Pulmonary Disease; ATTEND Internal Medicine Pulmonary Disease
DX: M41.9 Scoliosis, unspecified (principal); M25.551 Pain in right hip; I10 Essential (primary) hypertension; J43.9 Emphysema, unspecified; E11.9 Type 2 diabetes mellitus without complications; E78.00 Pure hypercholesterolemia, unspecified; Z87.891 Personal history of nicotine dependence; Z96.641 Presence of right artificial hip joint; Z79.82 Long term (current) use of aspirin; Z88.3 Allergy status to other anti-infective agents; Z88.0 Allergy status to penicillin; F41.9 Anxiety disorder, unspecified; F32.9 Major depressive disorder, single episode, unspecified; E78.5 Hyperlipidemia, unspecified; M47.816 Spondylosis without myelopathy or radiculopathy, lumbar region; M48.56XS Collapsed vertebra, not elsewhere classified, lumbar region, sequela of fracture; M48.061 Spinal stenosis, lumbar region without neurogenic claudication; M51.36 Other intervertebral disc degeneration, lumbar region